=== PATIENT | female | born 1980 | race African-American/Black ===

== ENCOUNTER 2023-09-07 02:33 | Emergency (ER) | payer OTHER, SELFPAY ==
--- NOTE | ~2023-09-07 | XR_ITS ---
EXAMINATION: XR elbow RT min 3V DATE: 09/07/2023 02:53 INDICATION: Right elbow injury and pain. TECHNIQUE: 4 views of right elbow were obtained. COMPARISON: None. FINDINGS: Bone alignment is normal. No fracture. Joint spaces are normal. No elbow joint effusion. IMPRESSION: 1. No fracture. Reviewed, dictated and finalized at location A. CLOSURE SPECIALIST IMPRESSION: 1. No fracture.
--- NOTE | ~2023-09-07 | CT_ITS ---
EXAMINATION: CT elbow RT wo con DATE: 09/07/2023 03:30 INDICATION: Right elbow pain. TECHNIQUE: Computed tomography (CT) of the right elbow was performed without intravenous contrast. Au tomated exposure control and iterative reconstruction technique were employed. The dose-length produc t was 457.17 mGy-cm. COMPARISON: Right elbow radiographs 09/07/2023 FINDINGS: Bone alignment is normal. No fracture. There is mild elbow joint osteoarthritis characteriz ed by tiny osteophytes. No elbow joint effusion. IMPRESSION: 1. Mild elbow joint osteoarthritis. Reviewed, dictated and finalized at location A. DING MAINTENANCE REPAIRER
--- NOTE | ~2023-09-07 | XR_ITS ---
EXAMINATION: XR forearm RT 2V DATE: 09/07/2023 02:53 INDICATION: Right forearm injury and pain. TECHNIQUE: 2 views of right forearm were obtained. COMPARISON: None. FINDINGS: Bone alignment is normal. No fracture. Joint spaces are normal. No elbow joint effusion. IMPRESSION: 1. No fracture. Reviewed, dictated and finalized at location A. DROGENATION CONVERTER HELPER IMPRESSION: 1. No fracture.
[2023-09-07 02:49] VITALS: BP 173/92; PULSE 84; RESP 18; TEMP 37; O2SAT 100
--- NOTE | 2023-09-07 02:57 | ED.UPPEXIN ---
HPI - Extremity Injury (Upper) General Chief Complaint: Extremity Injury, Upper Stated Complaint: upper extremity Time Seen by Provider: 09/07/23 02:54 Source: patient Mode of arrival: ambulatory Limitations: no limitations History of Present Illness HPI narrative: Patient is a 43-year-old female with a right elbow pain after lifting up a window this evening. She heard a pop sound. complaint: injury to: right Onset (ago): minute(s) ( Prior to arrival) Other Extremity Injury: Right: elbow and forearm Other injuries: none Place: home Severity: mild Severity scale (1-10): 3 Relieving factors: immobilization Exacerbating factors: movement of extremity Context: direct blow ( lifting a window) Associated symptoms: denies other symptoms Related Data Home Medications Medication Instructions Recorded Confirmed cetirizine 10 mg tablet (Zyrtec) 10 mg PO DAILY 09/07/23 09/07/23 Allergies Allergy/AdvReac Type Severity Reaction Status Date / Time clindamycin Allergy Mild Rash Verified 09/07/23 02:44 Review of Systems Review of Systems: All systems reviewed & are unremarkable except as noted in HPI and below Constitutional: Constitutional: Reports no additional constitutional complaints Eyes: Eyes: Reports no additional eye complaints ENT: Reports system reviewed and no additional complaints, except as documented Cardiovascular: Cardiovascular: Reports no additional cardiovascular complaints Respiratory: Respiratory: Reports no additional respiratory complaints Gastrointestinal: Gastrointestinal: Reports no additional gastrointestinal complaints Genitourinary: Genitourinary: Reports no additional female genitourinary complaints Musculoskeletal: Musculoskeletal: Reports no additional musculoskeletal complaints Integumentary/Breasts: Skin/Breast: Reports system reviewed and no additional complaints, except as docu Neurologic: Reports system reviewed and no additional complaints, except as documented Psychiatric: Psychiatric: Reports no additional psychiatric complaints Endocrine: Endocrine: Reports no additional endocrine complaints Hematologic/Lymphatic: Hematologic/Lymphatic: Reports no additional hematologic/lymphatic complaints Allergic/Immunologic: Allergic/Immunologic: Reports no additional allergic/immunologic complaints Exam Const: General: healthy appearing Nutritional Appearance: well nourished Orientation/consciousness: patient oriented x3 HENMT: Head: normal to inspection Ears: external ears normal Face/Nose/Sinus: Normal external nose present Eyes: Conjunctivae: conjunctivae normal Pupils: Equal, round and reactive pupils present EOM: EOMs intact bilaterally Neck: Neck: normal visual inspection Chest: Chest palpation & inspection: normal inspection of the chest Resp: Effort & Inspection: normal respiratory effort and not labored Auscultation: clear to auscultation bilaterally and no crackles Cardio: Rate: regular rate Rhythm: regular rhythm Heart sounds: no murmurs GI: Inspection: non-distended GI Palp: Yes Soft to palpation and No Tenderness to palpation present (GI) Auscultation: normal bowel sounds Back/Spine/Pelvis: Back: no CVA tenderness Skin: General skin exam: normal color Rashes: no rashes Wounds: no wounds Neuro: General: patient oriented x3 Cranial nerves: Yes Nystagmus not present Speech: normal speech Extrem: General: normal to inspection Psych: Mental Status: mental status grossly normal Affect: normal affect Attitude: cooperative Course Vital Signs Vital signs: Vital Signs Temperature 37.0 C 09/07/23 02:49 Pulse Rate 84 09/07/23 02:49 Respiratory Rate 18 09/07/23 02:49 Blood Pressure 173/92 H 09/07/23 02:49 Pulse Oximetry 100 09/07/23 02:49 Oxygen Delivery Room Air 09/07/23 02:49 Temperature 37.0 C 09/07/23 02:49 Pulse Rate 84 09/07/23 02:49 Respiratory Rate 18 09/07/23 02:49 Blood Pressure 173/92 H 09/07
== END 2023-09-07 03:58 | disposition home or self-care (01) ==
PROVIDERS: Emergency Provider Emergency Medicine
DX: S53.401A Unspecified sprain of right elbow, initial encounter (principal); X50.9XXA Other and unspecified overexertion or strenuous movements or postures, initial encounter
CPT/HCPCS: 73080; 73090; 73200; 99284; A4565

== ENCOUNTER → 2023-09-20 08:23 | Outpatient (CLI) | payer OTHER, SELFPAY ==
--- NOTE | ~2023-09-20 | MR_ITS ---
MRI of the right elbow CLINICAL HISTORY: Pain TECHNIQUE: Proton-density and proton-density fat-sat imaging was performed in the axial, coronal, and sagittal planes. FINDINGS: Ulnar collateral ligament is intact. Lateral ulnar collateral ligament and the radial colla teral ligament are intact. Common flexor and common extensor tendon origins are unremarkable. Bone marrow signals are unremarkable. No osseous or articular abnormality of the elbow joint seen. No joint effusion. There is complete rupture of the distal biceps tendon from its radial insertion, with retraction of a t least 4.5 cm. There is soft tissue edema and fluid about the retracted tendon, which is wavy and hy perintense and morphology. Brachialis and triceps tendons are intact. Remaining musculature unremarka ble. IMPRESSION: Complete rupture of the distal biceps tendon with significant retraction, as detailed above. Reviewed, dictated and finalized at [facility]. HEATERMAN IMPRESSION: Complete rupture of the distal biceps tendon with significant retraction, as de tailed above.
== END ==
PROVIDERS: PCP Internal Medicine
DX: S46.211A Strain of muscle, fascia and tendon of other parts of biceps, right arm, initial encounter (principal); X58.XXXA Exposure to other specified factors, initial encounter
CPT/HCPCS: 73221

== ENCOUNTER 2024-10-13 08:23 | Outpatient (CLI) | payer OTHER, SELFPAY ==
--- NOTE | ~2024-10-13 | MR_ITS ---
EXAMINATION: MR lumbar spine wo con DATE: 10/13/2024 09:02 INDICATION: Lumbar disc herniation TECHNIQUE: Magnetic resonance imaging (MRI) of the lumbar spine was performed without intravenous con trast. Sequences included sagittal T2-weighted FSE, sagittal T2-weighted FS FSE, sagittal T1-weighted FSE, and axial T2-weighted FSE. COMPARISON: None FINDINGS: 1-2 mm retrolisthesis L3 on L4. Vertebral body heights are normal. Moderate disc height loss with ass ociated fibrovascular degenerative endplate changes at L5-S1. Marrow signal is otherwise unremarkable . Additional mild disc height loss at L3-L4. The conus medullaris terminates at T12-L1. There is norm al signal in the caudal spinal cord. Paravertebral soft tissues are unremarkable. The following disc levels are specifically discussed: T12-L1 through L2-L3: The disc does not extend beyond the endplate margin. There is mild bilateral fa cet joint osteoarthritis. There is no neural foraminal stenosis. There is no central canal L3-L4: Disc is mildly bulging. There is mild bilateral facet joint osteoarthritis. There is minimal b ilateral neural foraminal stenosis. There is minimal central canal stenosis. L4-L5: Disc is mildly bulging. There is mild left and severe right facet joint osteoarthritis. There is mild bilateral neural foraminal stenosis. There is normal central canal stenosis. L5-S1: Disc is bulging with reported annular fissure and left paracentral disc protrusion. There is m oderate bilateral facet joint osteoarthritis. There is mild right and mild to moderate left neural fo raminal stenosis. There is mild central canal stenosis as well as mild narrowing narrowing of the lef t lateral recess. IMPRESSION: 1. Moderate lumbosacral spondylosis and minimal to mild more cephalad lumbar spondylosis. Reviewed, dictated and finalized at location A. WORKER IMPRESSION: 1. Moderate lumbosacral spondylosis and minimal to mild more cephalad lumbar sp ondylosis.
== END 2024-10-13 08:24 | disposition home or self-care (01) ==
PROVIDERS: PCP Internal Medicine; Visit Provider Chiropractor
DX: M51.26 Other intervertebral disc displacement, lumbar region (principal); M47.897 Other spondylosis, lumbosacral region; M47.896 Other spondylosis, lumbar region
CPT/HCPCS: 72148

== ENCOUNTER 2024-12-29 17:52 | Emergency (ER) | payer OTHER, SELFPAY ==
--- OUTSIDE RECORDS SUMMARY | 2024-12-29 17:55 | XMS_ITS ---
Author Organization [facility] [place] ([address]) Address [address] [place] [address] Care Team Providers Care Film Sound Engineer Name Role Phone Alexys Scott MD Primary Care Provider UnavailFuad Mayen Unavailable [phone] ZZ-Migration, Provider Unavailable Unavailab le Allergies Allergen (clinical drug ingredient) Drug/Non Drug Allergy documented on EMR Reaction Allergy Type Onset Date Status clindamycin Clindamycin hives Drug Allergy Act sage REAS[facility] Encounter Medications Medication SIG (Take, Route, Frequency, Duration) Notes Start Date End Date Status NASAL WASHES N/A DIRECTED INTRANASALLY NEEDED for 30 *Please review for potential replacement for e-prescription and drug interaction check* Active OLOPATADINE NASAL 665 MCG/INH 2 SPRAY(S) INTRANASALLY 2 TIMES A DAY for 30 DAY(S) *Please review for potential replacement for e-prescription and drug interaction check* Active Fluticasone Propionate 50 MCG/ACT 2 spray(s) in each nostril BID for 30 day(s) Active Cetirizine HCl 10 MG 1 tab(s) orally BID for 30 days Active ZyrTEC Allergy 10 MG 1 tab(s) orally once a day Active Auvi-Q 0.3 MG/0.3ML as directed intramuscularly once for 30 days Active Flonase Allergy Relief 50 MCG/ACT 1 spray(s) in each nostril once a day for 30 day(s) Active Multivitamin - 1 tab(s) orally once a day for 30 day(s) Active VANICREAM MOISTURIZING CREAM N/A NECESSARY APPLY TO EXTERNAL SURFACES OFTEN NEEDED TO FACE, HANDS, FEET OR BODY FOR DAILY USE BY THE ENTIRE FAMILY for 30 DAY(S) *Please review for potential replacement for e-prescription and drug interaction check* Active Encounters Encounter Location Date Provider Diagnosis [facility] [address] [place] [address] 02/21/2024 Provider SUKUMAR-Migration Plan Of Treatment No Information Progress Notes * JPAlbertaericaDOB:1980 (44 yo F)Acc No.[id number]:02/21/2024 Patient: Tayler DREW Provider: Roger Pritchard :1980 A ge:43 Y S ex:Female Date:02/21/2024 Address:[address] [place], [place] [id number] Pcp:Alexys Scott MD Subjective: * Chief Complaints: * 1 . Multum To Medispan Conversion Encounter. * Medical History: * Medications: T aking Auvi-Q 0.3 MG/0.3ML Solution Auto-injector as directed intramuscularly once , Taking VANICREAM MOISTURIZING CREAM N/A MOISTURIZING CREAM NECESSARY APPLY TO EXTERNAL SURFACES OFTEN NEEDED TO FACE, HANDS, FEET OR BODY FOR DAILY USE BY THE ENTIRE FAMILY , Notes to Pharmacist: *Please review for potential replacement for e-prescription and drug interaction check*, Taking Multivitamin - Tablet 1 tab(s) orally once a day , Taking Flonase Allergy Relief 50 MCG/ACT Suspension 1 spray(s) in each nostril once a day , Taking ZyrTEC Allergy 10 MG Tablet 1 tab(s) orally once a day , Taking Cetirizine HCl 10 MG Tablet 1 tab(s) orally BID , Taking Fluticasone Propionate 50 MCG/ACT Suspension 2 spray(s) in each nostril BID , Taking OLOPATADINE NASAL 665 MCG/INH SPRAY 2 SPRAY(S) INTRANASALLY 2 TIMES A DAY , Notes to Pharmacist: *Please review for potential replacement for e-prescription and drug interaction check*, Taking NASAL WASHES N/A 1 QUART OF STERILIZED TAP WATER OR DISTILLED WATER, 1 TSP NACL, 1 PINCH OF BAKING SODA DIRECTED INTRANASALLY NEEDED , Notes to Pharmacist: *Please review for potential replacement for e-prescription and drug interaction check* * Allergies: C lindamycin: hives. Objective: * Vitals: Assessment: Plan: * Treatment: * Billing Information: * Visit Code: * Procedure Codes: * Electronic signature of Filomena PATINO-Migration on 12/29/2024 at 05:54 PM CDT Sign off status: Pending * Provider: Roger morin Migration Date: 0 02/21/2024 Generated for Mj arthur/Lyndon/Princeitting on: 0 12/29/2024 05:54 PM CDT
--- OUTSIDE RECORDS SUMMARY | 2024-12-29 17:55 | XMS_ITS | Encounter Summary ---
Author Organization [facility] Address [address] [place] [address] Care Team Providers Care Assistant Store Manager Trainee Name Role Phone Alexys Scott MD Primary Care Provider [phone] Encounter Details Date Type Department Care Team (Late st Contact Info) Description 08/19/2024 Telephone [facility] Care at [address] [address] Carrie Luciano MA Social History Tobacco Use Types Packs/Day Years Used Date Smoking Tobacco: Never Personal Safety Answer Date Recorded Getting School Help Needed Not on file 09/15 Comments Unknown Sex and Gender Information Value Date Recorded Sex Assigned at Not on file Legal Sex Female 9:32 PM PORTAL DEVELOPER Gender Identity Not on file Sexual Orientation Not on file documented as of this encounter Plan of Treatment Not on file documented as of this encounter Visit Diagnoses Not on filedocumented in this encounter Care Teams Assistant Store Manager Trainee Relationship Specialty Start Date End Date Alexys Scott MD [address] [place] [address] [address] [place] [address] PCP - General Internal Medicine 06/07/22 documented as of this encounter
--- OUTSIDE RECORDS SUMMARY | 2024-12-29 17:55 | XMS_ITS | Patient Health Record ---
Author Organization [facility] [place] ([address]) Address [address] [place] [address] Care Team Providers Care Bank Officer Name Role Phone Alexys Scott MD Primary Care Provider UnavailFuad Mayen Unavailable [phone] ZZ-Migration, Provider Unavailable Unavailab le Allergies Allergen (clinical drug ingredient) Drug/Non Drug Allergy documented on EMR Reaction Allergy Type Onset Date Status clindamycin Clindamycin hives Drug Allergy Act sage Reason For Referral No Information Medications Medication SIG (Take, Route, Frequency, Duration) Notes Start Date End Date Status Multivitamin - 1 tab(s) orally once a day for 30 day(s) Active VANICREAM MOISTURIZING CREAM N/A NECESSARY APPLY TO EXTERNAL SURFACES OFTEN NEEDED TO FACE, HANDS, FEET OR BODY FOR DAILY USE BY THE ENTIRE FAMILY for 30 DAY(S) *Please review for potential replacement for e-prescription and drug interaction check* Active Auvi-Q 0.3 MG/0.3ML as directed intramuscularly once for 30 days Active AUVI -Q 0.3 mg as directed intramuscularly once for 30 days Active MULTIVITAMIN Multiple Vitamins 1 tab(s) orally once a day for 30 day(s) Active NASAL WASHES N/A DIRECTED INTRANASALLY NEEDED for [...] 1 tab(s) orally once a day Active Flonase Allergy Relief 50 MCG/ACT 1 spray(s) in each nostril once a day for 30 day(s) Active FLONASE 50 mcg/inh 1 spray(s) in each nostril once a day for 30 day(s) Active ZYRTEC 10 mg 1 tab(s) orally once a day Active CETIRIZINE 10 mg 1 tab(s) orally BID for 30 days Active FLUTICASONE NASAL 50 mcg/inh 2 spray(s) in each nostril BID for 30 day(s) Active Social History Tobacco Use: Social History Observation Description Date Details (start date - stop date) Never Smoker NA - NA Smoking Smart Form: Question Answer Notes Are you a: never smoker Problems Problem Type SNOMED Code ICD Code Onset Dates Problem Status W/U Status Risk Notes Problem Chronic allergic conjunctivitis (49788448) Other chronic allergic conjunctivitis (H10.45) Active confirmed Problem Allergic rhinitis caused by pollen (disorder) (40855140) Allergic rhinitis due to pollen (J30.1) Active confirmed Problem Allergic rhinitis (06222921) Other allergic rhinitis (J30.89) Active confirmed Problem Allergic rhinitis caused by animal hair and dander (573711464495559) Allergic rhinitis due to animal (cat) (dog) hair and dander (J30.81) Active confirmed Problem Eruption of skin (452685661) Rash and other nonspecific skin eruption (R21) Active confirmed Problem Idiopathic urticaria (04283074) Idiopathic urticaria (L50.1) Active confirmed Problem Elevated blood pressure reading without diagnosis of hypertension (116529519) Elevated blood-pressure reading, without diagnosis of hypertension (R03.0) Active confirmed Problem Ingestion dermatitis caused by food (084975628) Dermatitis due to ingested food (L27.2) Active confirmed Problem Swelling of head (226739554) Localized swelling, mass and lump, head (R22.0) Active confirmed Problem Allergy status t o other antibiotic agents (Z88.1) Active confirmed Encounters En[facility] Date [facility] [place] [address] [facility] Provider ZZ-Migration Plan Of Treatment Pending Test Test Name Order Date SCALLOP (F338) IGE 12/27/2021 CRAB (F23) IGE 12/27/2021 SHRIMP (F24) IGE 12/27/2021 LOBSTER (F80) IGE 12/27/2021 LOBSTER (F80) IGE 05/29/2022 IMMUNOGLOBULIN E 05/29/2022 IMMUNOGLOBULIN E 12/27/2021 CLAM (F207) IGE 12/27/2021 OYSTER (F290) IGE 12/27/2021 BRAZIL NUT (F18) IGE W/REFL COMPONENT Insurance Providers Payer Name Payer Address Payer Phone Subscriber Number Group Number Insured Name Patient Relationship to Insured Coverage Start Date Coverage End Date [facility] [address] [address] [place] [address] [phone] [id number] Tayler Linares Self - patient is the insured Medical (General) History Medical History History ICD Code Dermatitis, unspecified L30.9 Allergic rhinitis due to pollen J30.1 Allergic rhinitis due to animal (cat) (d og) hair and dander J30.81 Other allergic rhinitis J30.89 Other chronic allergic conjunctivitis H1 0.45 Idiopathic urticaria L50.1 Dermatitis due to ingested food L27.2 Localized swelling, mass and lump, head R22.0 Rash and other nonspecific skin eruption R21 Allergy status to other antibiotic agent s Z88.1 Elevated blood-pressure reading, without diagnosis of hypertension R03.0 Surgical History Surgery Date(Month/Year)
--- OUTSIDE RECORDS SUMMARY | 2024-12-29 17:55 | XMS_ITS | Clinical Summary ---
Author Organization [facility] Address [address] [place] [address] Care Team Providers Care Slabber Light Name Role Phone Alexys Scott MD Primary Care Provider Allergies Active Allergy Reactions Criticality Noted Date Comments Cephalexin Unknown 06/26/2022 Clindamycin Hives,Swelling Medium 01/12/2015 Swelling Latex Rash Medium 01/12/2015 Rash Lidocaine Dizziness Low 01/12/2015 Dizziness/Light Headed Mold Other (See comments) Low 01/12/2015 Hives Penicillins Other (See comments),Swelling Medium 01/12/2015 Swelling Pseudoephedrine Shortness of breath High 01/12/2015 Breathing Difficulty Shellfish Containing Products Shrimp Swelling Medium 01/12/2015 Swelling Sulfa (Sulfonamide Antibiotics) Unknown Medications cetirizine (ZyrTEC) 10 mg tablet Take 1 tablet (10 mg total) by mouth daily Active EPINEPHrine 0.3 mg/0.3 mL auto-injection syringe Auvi-Q 0.3 mg/0.3 mL injection, auto-injector USE DIRECTED INTRAMUSCULARLY Active fluticasone propionate (FLONASE) 50 mcg/actuation nasal spray 06/21/20 22 Active olopatadine 0.6 % spray,non-aero maren olopatadine 0.6 % nasal spray Active terconazole (TERAZOL 3) 0.8 % vaginal cream 06/06/20 22 Active testosterone micronized, bulk, 100 % powder 0 04/30/20 22 Active triamcinolone (KENALOG) 0.1 % ointment APPLY TO AFFECTED AREA OF TRUNK AND EXTREMITIES TWICE DAILY NEEDED. AVOID FACE AND ARMPITS 04/18/20 22 Active fluconazole (DIFLUCAN) 100 mg tablet 07/17/20 23 Active hydrocortisone (ANUSOL-HC) 2.5 % rectal cream APPLY SPARINGLY TO AFFECTED AREA 2 TO 4 TIMES A DAY 08/27/20 23 Active omadacycline (Nuzyra) 150 mg tablet Take 2 tablets every day by oral route. Active propranoloL (INDERAL) 20 mg tablet Take 1 tablet (20 mg total) by mouth every 8 (eight) hours 08/14/20 22 Active traMADoL (ULTRAM) 50 mg tablet 1 TAB TAKEN (TOGETHER W/ 1 TAB OF TYLENOL 650 MG) ONCE, UP TO TWICE A DAY NEEDED Active Active Problems Problem Noted Date Diagnosed Date Rupture of right distal biceps tendon 10/06/2023 Biceps rupture, distal, right, initial encounter 09/24/2023 Acute urinary tract infection 11/12/2022 Anxiety 10/10/2022 Acute blepharitis 09/22/2022 Chalazion of left upper eyelid 06/26/2022 Assessment & Plan (06/26/2022 12:34 PM CDT): Educated and reassured patient of findings From history previous hordeolum as well, treated by outside provider with Augmentin Much improved form 2-3 weeks ago per patient Refer to oculo-plastics for I/C eval Glaucoma suspect, bilateral 06/26/2022 Assessment & Plan (06/26/2022 12:35 PM CDT): Normal tensive, symmetrical IOP, 18 OU Large ONH OU, with slightly asymmetrical CDR OS > OD Healthy NRR 360 OU, no hemes / notches OU OCT today WNL OU Likely represents physiologic cupping RTC 1 year with 24-2, PRN with vision changes COVID-19 10/12/2020 Dry skin 06/01/2018 Sneezing 06/01/2018 Eczema 06/01/2018 Dry eyes 06/01/2018 Precordial pain 01/20/2018 Hay fever 08/05/2016 Hypertrophy of nasal turbinates 08/05/2016 Atypical facial pain 08/05/2016 Cephalalgia 08/05/2016 Epiphora 08/05/2016 Family History Medical History Relation Name Comments Arthritis Other Gout Other Osteoporosis Other Relation Name Status Comments Other Social History Tobacco Use Types Packs/Day Years Used Date Smoking Tobacco: Never Personal Safety Answer Date Recorded Getting School Help Needed Not on file 09/15 Comments Unknown Sex and Gender Information Value Date Recorded Sex Assigned at Not on file Legal Sex Female 9:32 PM CHAIRMAN & CO FOUNDER Gender Identity Not on file Sexual Orientation Not on file Obstetrics History Last Filed Vital Signs Vital Sign Reading Time Taken Comments Blood Pressure 163/97 09/24/2023 11:44 AM CHAIRMAN & CO FOUNDER Pulse 79 09/24/2023 11:44 AM CHAIRMAN & CO FOUNDER Temperature 37.1 C (98.7 F) 01/12/2015 9:28 AM CDT Respiratory Rate - - Oxygen Saturation 100% 01/12/2015 9:28 AM CDT Inhaled Oxygen Concentration - - Weight 72.1 kg (159 lb) 09/24/2023 11:44 AM CHAIRMAN & CO FOUNDER Height 162.6 cm (5' 4 ) 09/24/2023 11:44 AM CHAIRMAN & CO FOUNDER Body Mass Index 27.29 09/24/2023 11:44 AM CHAIRMAN & CO FOUNDER Plan of Treatment Health Maintenance Due Date Last Done Comments Cervical Cancer Screening 1978 Colon Cancer Screening-Colonoscopy 1978 Depression Screening 1978 Hepatitis C Screening 1978 DTaP/Tdap/Td Vaccine (1 - Tdap) 1989 Hepatitis B Screening 1996 Regular Well Visit/Exam 18-64 1996 Covid-19 Vaccine (2 - season) 2024 11/18/2021 Influenza Vaccine (#1) 2024 Breast Cancer Screening-Mammogram 01/25/2025 01/26/2024, 01/26/2024, 10/28/2022, Additional history exists HPV Vaccines Aged Out No longer eligi ble based on patient's age to complete this topic Pneumococcal vaccine <65 Aged Out No longer eligible based on patient's age to complete this topic Insurance [employer] [place] [id number] Care Teams Slabber Light Relationship Specialty Start Date End Date Alexys Scott MD [facility] [address] [place] [address] PCP - General Internal Medicine 06/07/22
--- OUTSIDE RECORDS SUMMARY | 2024-12-29 17:55 | XMS_ITS | Clinical Summary ---
Author Organization [email or web address] Address [address] [place] [address] Care Team Providers Care Industrial Eng Name Role Phone Alexys Scott MD Primary Care Provider [phone] Source Comments [email or web address],non-owned Affiliates and Associated Physician Practices is amultiple site organization consisting of ambulatory clinics and hospital sitesin [place], [place], [place] and [place]. This disclosure is being madepursuant to the Care Everywhere program and may not contain all information available regarding this patient. Last updated 18.[email or web address] Allergies Active Allergy Reactions Criticality Noted Date Comments Shellfish-Derived Products Unknown Sulfa Drugs Unknown Medications * Be aware that medications may not be up to date on this document. Alwaysverify current medications with the patient. fluticasone propionate (FLONASE) 50 MCG/ACT nasal spray [place] 2 sprays into each nostril once daily 1 11/06/2017 Active cetirizine (ZYRTEC ALLERGY) 10 MG tablet Take 10 mg by mouth once daily Active Active Problems Problem Noted Date Diagnosed Date Precordial pain 01/20/2018 Family History Medical History Relation Name Comments CAD (Coronary Artery Disease) Maternal Grandmother Diabetes - Type 2 Mother Hypertension Mother Relation Name Status Comments Father Alive Maternal Grandfather Maternal Grandmother Alive Mother Alive Paternal Grandfather Paternal Grandmother Sister 1 Alive Sister 2 Alive Social History Tobacco Use Types Packs/Day Years Used Date Smoking Tobacco: Never Alcohol Use Standard Drinks/Week Comments No 0 (1 standard drink = 0.6 oz pur e alcohol) Comments Unknown Sex and Gender Information Value Date Recorded Sex Assigned at Not on file Legal Sex Female 8:47 AM CDT Gender Identity Not on file Sexual Orientation Not on file Last Filed Vital Signs Vital Sign Reading Time Taken Comments Blood Pressure 118/84 01/20/2018 2:53 PM CDT Pulse 107 01/20/2018 2:53 PM CDT Temperature - - Respiratory Rate - - Oxygen Saturation 95% 01/20/2018 2:53 PM CDT Inhaled Oxygen Concentration - - Weight 65.8 kg (145 lb) 01/20/2018 2:53 PM CDT Height 167.6 cm (5' 6 ) 01/20/2018 2:53 PM CDT Body Mass Index 23.4 01/20/2018 2:53 PM CDT Plan of Treatment Health Maintenance Due Date Last Done Comments COLOGUARD (AGES 45-75) - COL ON CA SCREENING 1978 COLON MONITORING 1978 COLONOSCOPY - COLON CA SCREENING 1978 CT COLONOGRAPHY - COLON CA SCREENING 1978 Colorectal Cancer Screening 1978 FIT - COLON CA SCREENING 1978 FLEX SIG - COLON CA SCREENING 1978 LIPID TESTING 1978 MAMMOGRAM 1978 HIV SCREENING 1993 HEPATITIS C SCREENING 08/09/1996 DTAP/TDAP/TD VACCINES (1 - Tdap) 1997 HEPATITIS B VACCINE (1 of 3 - 19+ 3-dose series) 1997 COVID-19 VACCINE (1 - 2023-2 5 season) 2024 DEPRESSION SCREENING 09/08/2024 INFLUENZA VACCINE (Season Ended) 2025 ZOSTER VACCINE (1 of 2) 2028 HIB VACCINE Aged Out No longer eligi ble based on patient's age to complete this topic HPV VACCINE Aged Out No longer eligi ble based on patient's age to complete this topic MENINGOCOCCAL (Group B) VACC INE SHARED DECISION-MAKING Aged Out No longer eligibl e based on patient's age to complete this topic MENINGOCOCCAL GROUPS A/C/Y/W VACCINE Aged Out No longer eligible b ased on patient's age to complete this topic PNEUMOCOCCAL VACCINE Aged Out No long er eligible based on patient's age to complete this topic Insurance CLAUDIAEM Care Teams Industrial Eng Relationship Specialty Start Date End Date Alexys Scott MD [address] [place] [address] [address] [place] [address] PCP - General 09/16/18
--- OUTSIDE RECORDS SUMMARY | 2024-12-29 17:55 | XMS_ITS | Encounter Summary ---
Author Organization [facility] Address [address] [place] [address] Care Team Providers Care Molding Supervisor Name Role Phone Alexys Scott MD Primary Care Provider [phone] Reason for Visit * Auth/Cert (Routine) Specialty Diagnoses / Procedures Referred By Contac t Referred To Contact Diagnoses Rupture of right distal biceps tendon, subsequent encounter Rupture of right distal biceps tendon, subsequent encounter [S46.211D] Procedures IA RINSJ RPTD BICEPS/TRICEPS TDN DSTL W/WO TDN GRF REPAIR - DISTAL BICEPS-open Referral ID Status Reason Start Date Expiration Date Visits Re quested Visits Authorized [id number] 1 1 Encounter Details Date Type Department Care Team (Late st Contact Info) Description 10/10/2023 Hospital Encounter [facility] Surgery at [facility] [address] [place] [address] Barron Hollingsworth MD [address] [place] [address] Social History Tobacco Use Types Packs/Day Years Used Date Smoking Tobacco: Never Personal Safety Answer Date Recorded Getting School Help Needed Not on file 09/15 Comments Unknown Sex and Gender Information Value Date Recorded Sex Assigned at Not on file 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
--- OUTSIDE RECORDS SUMMARY | 2024-12-29 17:55 | XMS_ITS | Data Portability ---
Author Organization [facility], [employer] Address [address] [place] [address] Care Team Providers Care Soft Top Installer Name Role Phone IRENA VASQUEZ Inspector Multifocal Lens [phone] Assessment Encounter Date Assessment Date Assessment LastModified by Organization Details LastModified Time 12/23/2023 12/23/2023 Recommends healthy nutrition, including a diet rich in fruits and vegetables, minimizing simple carbohydrates, salt, and saturated fats. Encouraged regular cardiovascular exercise such as walking at least 30 minutes daily, 5 times per week. Emphasized preventive health measures and educated pt on fall prevention and community-based lifestyle interventions to help reduce health risks and promote healthy living. Not available 12/23/2023 10:20:37 Plan of Treatment Reminders Order Date Submit Date Provider Last Modified By Organization Details Last Modified Time Details Appointments None recorded. Lab microalbumi n/creatinin e, mass ratio, urine 2023 024 J[employer]ier [facility], [address], [place], [address], 4 10:28:45 HIV 1 + 2, meaningful use set 2023 024 CORNELBeijing Yiyang [employer] [facility], [address], [place], [address], 4 10:21:26 lipid panel, serum 2023 024 [facility], [address], [place], [address], 4 08:45:37 CBC w/ auto diff 2023 024 [employer] [facility], [address], [place], [address], 4 08:45:37 CMP, serum or plasma 2023 024 [employer] [facility], [address], [place], [address], 4 08:45:37 vitamin D, 25-hydroxy, total, serum 2023 024 [employer]Displ[employer] [facility], [address], [place], [address], 4 08:20:18 vitamin C, serum 2023 024 [employer] Nikolay [facility], [address], [place], [address], 4 10:28:45 noninvasive colorectal cancer DNA + occult blood screening, QL, stool 2023 024 [facility] (Cologuard Orders Only), [address], [address], [place], [address], 5 12:09:37 Referral gynecologis t referral 2023 024 [email or web address] 6 [facility], [address] [place], [address], 4 09:05:42 physical therapist referral 2023 024 radha [facility], [address], [place], [address], 5 08:19:21 gynecologis t referral 2022 023 [place], [address] [facility] [address], [place], [address], 3 05:34:13 Procedures None recorded. Surgeries None recorded. Imaging MAMMO, screening, digital, bilateral [address] Scheduling, [address] [facility], [place], [address], 4 19:11:29 Medication Orders propranolol 20 mg tablet 2023 024 [facility], [address], [place], [address], 4 10:20:39 amoxicillin 875 mg-potassiu m clavulanate 125 mg tablet 2023 024 [facility], [address], [place], [address], 4 10:20:39 fluconazole 150 mg tablet 2023 024 [facility], [address], [place], [address], 4 10:20:41 Miralax 17 gram oral powder packet 2023 024 [facility], [address], [place], [address], 4 20:27:51 Diflucan 150 mg tablet 2023 024 [facility], [address], [place], [address], 4 20:27:50 tramadol 50 mg tablet [address]/Pharmacy #2713, [address], [place], [address], 4 09:51:25 Nuzyra 150 mg tablet 2022 023 [address] [facility], [address], [place], [address], 4 09:51:13 Diflucan 100 mg tablet 2022 023 [address] [facility] [address], [address], [place], [address], 4 09:50:38 Diflucan 150 mg tablet 2022 023 [address] [facility], [address], [place], [address], 3 08:39:21 terconazole 0.8 % vaginal cream 2022 023 [facility], [address], [place], [address], 3 21:39:30 Patient TargetsNo targets recorded. Patient Instructions Encounter Date Encounter Id Patient Instructions Last Modified By Organization Details Last Modified Time 12/23/2023 [id number] advised to lose weight Not available 12/23/2023 10:20:33 Discussed and explained advance directives such as standard forms to the {{patient caregiv er patient and caregiver}}. Face to face discussion lasted for a duration of ___ minutes. Not available 12/23/2023 09:49:22 Reason for Referral Pattern Hand Referral for [place] [facility] [place] vaginalis Referring Physician: Freddy Gresham, Internal Medicine, Encounter Date: 04/25/2023 Physical Therapist Referral for Pain in right arm Referring Physician: Lydia Holder, Internal Medicine, Encounter Date: 09/10/2023 Pattern Hand Referral for Gy necologic examination Referring Physician: Lydia Holder, Internal Medicine, Encounter Date: 12/23/2023 Results Created Date Observation Date Name Description Value Unit Range Abnormal Flag Note LastModifiedBy Organization Detail LastModifiedTime 10/28/19 23 MAMMO , naina turk, tomos ynthe sis, bilat eral [facility] [address] [facility] [place] [place] [address] Orderi ng Provid er: LYDIA HOLDER This is a summar y report . The comple te report is availa ble in the patien t's medica l record . If you cannot access the medica l record , please contac t the sendin g organi zayessy for a detail ed fax or copy. IMAGIN G STUDIE S: MG SCREEN ING W MENDOZA TEGAN DIGI DATE: 023 2:23 PM HISTOR Y: Encoun ter for screen ing mammog latosha for malign ant neopla sm of breast 42-yea r-old female for screen ing study. No report ed family histor y of breast cancer . COMPAR BHARAT: Screen ing mammog latosha 2020, 2019, and 019. TECHNI QUE: Bilate ral digita l screen ing mammog latosha with CAD. Standa rd CC and MLO views. 2-D imagin g and 3-D tomogr aphy. DISCUS ADRIANA: Hetero geneou sly dense fibrog landul ar tissue which limits mammog raphic evalua tion. No mammog raphic ally suspic ious mass, microc alcifi cation , or marc ectura l distor tion. IMPRES ADRIANA: 1. No mammog raphic eviden ce of malign dell. Recomm end annual mammog latosha. 2. BI-RAD S Catego ry 2: Benign . 3. TISSUE TYPE: Catego ry C: The breast s are hetero geneou sly dense, which may obscur e small masses . A) A negati ve report should not delay a biopsy if a domina nt or clinic ally suspic ious mass is presen t. B) Adenos is and dense breast s may obscur e an underl alecia neopla sm. C) Study interp reted with comput er aided detect ion. Ordere d By: LYDIA HOLDER Electr onical ly Signed By: Daja Rg on 023 5:13 PM Interp reted By: Daja Rg , 023 5:07 PM screen ing [facility] [address], [place], [address], 10/29/2022 14:04:26 09/22/19 24 09/20/2023 MRI, elbow , w/ contr ast No observ ation record ed. [address] [facility] [address], [place], [address], 10/15/2023 20:31:09 01/26/20 24 MAMMO , scree burke, tomos ynthe sis, bilat eral [facility] [address] [facility] [place] [address] Orderi ng Provid er: LYDIA HOLDER This is a summar y report . The comple te report is availa ble in the patien t's medica l record . If you cannot access the medica l record , please contac t the matthias escudero for a detail ed fax or copy. Examin ation: Screen ing bilate ral mammog latosha Exam Date: 024 3:28 PM Access ion: [id number] Clinic al histor y: Routin e screen ing. Compar bharat: 2022, 2020 Techni que: Digita l screen ing mammog villa of both breast s was perfor med. Breast tomosy nthesi s acquis itions were obtain ed and review ed. This study was read with the assist ance of a Gogoyoko er-aid ed detect ion system . Tissue densit y: There are scatte red areas of fibrog landul ar densit y. Findin gs: No suspic ious masses , malign ant appear ing calcif icatio ns, skin thicke burke or other abnorm alitie s are presen t. No signif icant change from the prior exam. IMPRES ADRIANA: No suspic ious mammog raphic findin gs. Recomm endati on: 1. Routin e Screen ing, Bilate ral Assess ment: ACR BI-RAD S 1 - NEGATI VE Ordere d By: LYDIA HOLDER Electr onical ly Signed By: William Schreiber MD on 5:51 PM Interp reted By: William Schreiber MD, 5:46 PM [facility] [address] [facility], [place], [address], 01/26/2024 19:11:56 10/13/19 25 10/13/2024 MRI, lumba r spine , w/ contr ast No observ ation record ed. [email or web address] [facility] [address] [facility] [facility] [address], [place], [address], 10/14/2024 11:13:04 Result Notes None recorded. Problems Name Problem SNOMED Code Status Onset Date Resolution Date Notes Provider Name and Address Organization Details Recorded Time Headache 58990280 Completed 201706/01/2018 Lydia Holder MD [address] [facility] [address], [place], [address] , [facility] 3 16:16:12 Eczema 37099359 Completed 201706/01/2018 Adrianne mitchell [facility] 8 14:52:51 Dry skin 36676908 Completed 201706/01/2018 Adrianne mitchell [facility] 8 14:52:44 Dry eyes 460548289 Completed 201706/01/2018 Adrianne mitchell [place] [facility] 8 14:52:41 Sneezing 34326635 Completed 201706/01/2018 Adrianne mitchell [place] [facility] 8 14:52:37 COVID-19 888863533 Active 2020 Not Available [facility] 3 01:32:08 Acute blephariti s 11933673 Active 2022 Not Available [facility] 3 01:32:08 Anxiety 89126468 Active 2022 Lydia Holder MD [address], [place], [address] , [facility] 3 16:14:30 Headache 25746263 Active 2022 Lydia Holder MD [address], [place], [address] , [facility] 3 16:16:11 Acute urinary tract infection 493849041 Active 2022 Lydia Holder MD [address], [place], [address] , [facility] 3 08:07:46 Problem Notes None recorded. Procedures Surgical History Date Name Laterality Status Provider Name and Address Organization Details Recorded Time 3 Date of Last Mammogram completed [facility] 06/22/2024 10:35:32 3 Date of Last Pap Smear completed [facility] 09/30/2022 09:04:25 Imaging Results Imaging Date Name Status LastModified by Organiz ation Details LastModified Time 10/28/2022 MAMMO, screening, tomosynthesis, bilateral completed [address], [address], 10/29/2022 14:04:26 09/20/2023 MRI, elbow, w/ contrast completed [address] [facility] [address], [place], [address], 10/15/2023 20:31:09 01/26/2024 MAMMO, screening, tomosynthesis, bilateral completed [address], [address], 01/26/2024 19:11:56 10/13/2024 MRI, lumbar spine, w/ contrast completed [facility] [address] [facility] [address], [place], [address], 10/14/2024 11:13:04 Procedure Notes None recorded. Medical Equipment None Reported. Allergies Allergen ID Allergen Name Allergen Category Reaction Reaction Severity Criticality Documentation Date Start Date Code Code System Note Provider Name and Address Organization Details Recorded Time 7439 clindamyc in Not available hives Not available Not available 06/01/2018 2582 RxNorm Not Available Not Available Not Available 7669 cephalexi n medicatio n Not available Not available Not available 09/07/2018 2231 RxNorm Hives Not Available Not Available Not Available 9291 Augmentin medicatio n other mild Not available 06/12/20202019 80986 2 RxNorm yeast infec tion Not Available Not Available Not Available Medications Name Sig Start Date Stop Date Status Note LastModified by Organization Details LastModified Time Miralax 17 gram oral powder packet Take 1 packet every day by oral route. 2023 active Not Available Not Available Not Avai lable fluconazole 100 mg tablet Take 1 tablet every day by oral route. 12/22 completed Not Available Not Available Not Available prednisone 10 mg tablet TAKE 2 TABLETS BY MOUTH DAILY 07/17 completed Not Available Not Available Not Available fluconazole 150 mg tablet TAKE 1 TABLET BY MOUTH EVERY OTHER DAY active Not Available Not Available No t Available metronidazo le 0.75 % (37.5 mg/5 gram) vaginal gel INSERT 1 APPLICATO R VAGINALLY AT BEDTIME FOR 5 NIGHTS 07/18 completed Not Available Not Available Not Available propranolol ER 60 mg capsule,24 hr,extended release 08/06 completed Not Available Not Available Not Available terconazole 0.8 % vaginal cream PLEASE SEE ATTACHED FOR DETAILED DIRECTION S active Not Available Not Available No t Available tramadol 50 mg tablet 1 TAB TAKEN (TOGETHER W/ 1 TAB OF TYLENOL 650 MG) ONCE, UP TO TWICE A DAY NEEDED 12/22 completed Not Available Not Available Not Available meloxicam 7.5 mg tablet 06/01 completed Not Available Not Available Not Available hydrocortis one 2.5 % topical cream with perineal applicator APPLY SPARINGLY TO AFFECTED AREA 2 TO 4 TIMES A DAY active Not Available Not Available No t Available nitrofurant oin macrocrysta l 100 mg capsule TAKE 1 CAPSULE BY MOUTH EVERY 12 HOURS FOR 4 DAYS. 05/02 completed Not Available Not Available Not Available triamcinolo ne acetonide 0.1 % topical ointment APPLY TO AFFECTED AREA OF TRUNK AND EXTREMITI ES TWICE DAILY NEEDED. AVOID FACE AND ARMPITS 12/22 completed Not Available Not Available Not Available lisinopril 10 mg tablet active Not Available Not Available Not Available sertraline 25 mg tablet Take 1 tablet every day by oral route. 07/17 completed Not Available Not Available Not Available methylpredn isolone 4 mg tablets in a dose pack 08/05 completed Not Available Not Available Not Available propranolol 20 mg tablet Take 1 tablet every 8 hours by oral route. active Not Available Not Available No t Available hydrocortis one 2.5 % topical ointment 06/01 completed Not Available Not Available Not Available fluticasone propionate 50 mcg/actuati on nasal spray,suspe nsion INSTILL 2 SPRAYS EVERY DAY DIRECTED. INTO NOSTRIL(S ) 2023 active Not Available Not Available Not Avai lable amoxicillin 875 mg-potassiu m clavulanate 125 mg tablet TAKE 1 TABLET BY MOUTH EVERY 12 HOURS active Not Available Not Available No t Available oxycodone 5 mg tablet TAKE 1 TO 2 TABLETS BY MOUTH EVERY 4 HOURS NEEDED FOR PAIN MAX 6 TABS/DAY 12/22 completed Not Available Not Available Not Available fluocinolon e 0.01 % scalp oil and shower cap APPLY 3 ROWS TOPICALLY TO SCALP TWICE DAILY RUB IN, DO NOT WASH OFF. 07/18 completed Not Available Not Available Not Available Zyrtec 08/05 completed Not Available Not Available Not Available Mucinex 1,200 mg tablet, extended release Take 1 tablet every 12 hours by oral route. 08/05 completed Not Available Not Available Not Available olopatadine 0.6 % nasal spray PLACE 2 SPRAYS INTO EACH NOSTRIL TWICE A DAY 07/17 completed Not Available Not Available Not Available Auvi-Q 0.3 mg/0.3 mL injection, auto-inject or USE DIRECTED INTRAMUSC ULARLY active Not Available Not Available No t Available Solosec [address] granules in packet MIX INTO YOGURT 08/05 completed Not Available Not Available Not Available Nuzyra 150 mg tablet Take 2 tablets every day by oral route. 12/22 completed Not Available Not Available Not Available ID NOW COVID-19 Test Kit TEST DIRECTED TODAY 07/17 completed Not Available Not Available Not Available Vitals Date Recorded Body height Provider Name an d Address Organization Details Last Updated DateTime 04/25/2023 167.64 cm Josey Sterling [facility] 04/25/2023 11:59:48 Date Recorded Heart rate Systolic blood pressure Diastolic blood pressure Systolic blood pressure Diastolic blood pressure Provider Name and Address Organization Details Last Updated DateTime 06/24/2023 99 /min 142 mm[Hg] 84 mm[Hg] 143 mm[Hg] 86 mm[Hg] Jamila Amezcua [facility] 3 17:21:15 Date Recorded Body height Heart rate Respiratory rate Body temperature Body mass index (BMI) Body weight Systolic blood pressure Diastolic blood pressure Systolic blood pressure Diastolic blood pressure Provider Name and Address Organization Details Last Updated DateTime 4 167.64 cm 86 /min 16 /min 98.2 [degF] 26 kg/m2 51764.3 7 g 152 mm[Hg] 86 mm[Hg] 148 mm[Hg] 86 mm[Hg] Jamila Amezcua [facility] 4 10:14:40 Date Recorded Body height Heart rate Systolic blood pressure Diastolic blood pressure Provider Name and Address Organization Details Last Updated DateTime 10/15/2023 167.64 cm 78 /min 150 mm[Hg] 100 mm[Hg] Lydia Holder MD [address], [place], [address] , [facility] 10/15/2023 20:19:43 Date Recorded Body height Heart rate Respiratory rate Body temperature Body mass index (BMI) Body weight Systolic blood pressure Diastolic blood pressure Provider Name and Address Organization Details Last Updated DateTime 4 167.64 cm 90 /min 16 /min 97.3 [degF] 26.1 kg/m2 91951.9 6 g 138 mm[Hg] 84 mm[Hg] Keira Ramirez [facility] 4 09:33:03 Date Recorded Body height Heart rate Respiratory rate Body temperature Body mass index (BMI) Body weight Provider Name and Address Organization Details Last Updated DateTime 167.64 cm 90 /min 16 /min 94.5 [degF] 31.3 kg/m2 37479.9 2 g Keira Ramirez [facility] 10:35:02 Date Recorded Systolic blood pressure Diastolic blood pressure Provider Name and Address Organization Details Last Updated DateTime 06/22/2024 123 mm[Hg] 79 mm[Hg] Lydia Holder MD [address], [place], [address], [facility] 06/22/2024 11:01:54 Social History Question Answer Notes LastModified by Organizat ion Details LastModified Time Tobacco Smoking Status Never Smoker Adrianne mitchell, [facility] 06/01/2018 14:45:28 Do You Have An Advance Directive? No Information not available 06/01/2018 What Is Your Level Of Alcohol Consumption? Occasional Information not available 09/30/2022 What Is Your Level Of Caffeine Consumption? None Information not available 07/18/2021 How Much Tobacco Do You Chew? None Information not available 06/01/2018 What Is Your Code Status? Full Code Information not available 06/01/2018 Are You Currently Employed? Yes Information not available 06/01/2018 What Type Of Diet Are You Following? REGULAR Information not available 06/01/2018 Which Illicit Or Recreational Drugs Have You Used? None Information not available 06/01/2018 Do You Or Have You Ever Used E-cigarettes Or Vape? 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 06/22/2024 Information not available 06/22/2024 Do You Or Have You Ever Used Smokeless Tobacco? Never Used Smokeless Tobacco Information not available 07/07/2020 How Much Tobacco Do You Smoke? No Information not available 06/01/2018 Do You Use Any Illicit Or Recreational Drugs? No Information not available 07/18/2021 How Many Years Have You Smoked Tobacco? 0 Information not available 06/01/2018 Sex: Unknown Functional Status Question Answer Note LastModified by Organizat ion Details LastModified Time What is your exercise level? Moderate Yoga & wt lifting Information not available 06/01/2018 Mental Status None recorded. Family History Relationship Description Onset Age of this Age Resolved Age Notes LastModified by Organization Details LastModified Time Mother Diabetes mellitus [email or web address] Not available 05/10 14:43:31 Mother History of hypertension [email or web address] Not available 0 06/01/2018 14:43:53 Mother Chronic kidney disease stage 3 Not available 2017 15:24:43 Maternal Grandmother Rhythm from artificial pacing -- pacema ker implan t around 72 y/o Not available 06/01/2018 15:25:56 Maternal Grandfather Malignant tumor of lung (heavy smoker , 2ppd) -- dx'd in his 30s & in his 40s Not available 06/01/2018 15:27:15 Maternal Aunt Leukemia 42 48 -- dx'd in her 42 y/o Not available 06/01/2018 15:27:45 Maternal Aunt Malignant tumor of ovary -- dx'd in her early 40s Not available 06/01/2018 15:30:58 Medical History Condition Response Coronary Artery Disease N Other N Gout N Blood Diseases N Kidney Stones N Hyperthyroidism N Blood Transfusion N Breast Cancer N Lung Disease N Hypothyroidism N Depression N COPD N Defects or Inherited Disease N Developmental or Behavioral Disorders N Breast Problem N Difficulty Swallowing N Anesthesia Complications N Anxiety Disorder N Meniere's disease N Muscle, Joint, or Bone Problems N Obesity N Vision or Eye Problems N Arthritis N Infertility N Polyps N Mental Disorder N Cancer N Varicosities N Stroke N Endometriosis N Bladder or Kidney Problems N High Cholesterol N Liver Disease N Headaches N Fibromyalgia N Kidney Disease N Allergies/Hayfever N Heart Problems N Ear or Hearing Problems N Hospitalizations N Thyroid Problems N GI Problems N ADD/ADHD N Eating Disorder N Skin Problems N Anemia N MRSA exposure N Constipation N Mental Illness N Diabetes N Ovarian Cancer N Bedwetting N Seizures/Epilepsy N Tuberculosis N AIDS/HIV N Congestive Heart Failure (CHF) N Eczema N Abuse/Domestic Violence N Diverticulitis N Asthma N Reflux/GERD N Hepatitis N Heart Disease N Pulmonary Embolism N Chronic Ear Infections N Pre-Eclampsia N Hypertension N Chicken Pox N Autism Spectrum Disorder (ASD) N Osteoporosis N Thrombophilias N Gynecological History Statement/Question Response Date of Last Pap Smear 09/24/2022 Date of Last Mammogram 10/28/2022 Obstetrics History GPAL:G 3 P 2 0 1 0 Type Value Full Term 2 Spontaneous 1 Total 3 Immunizations Vaccine Type Date Status Note Provider Nam e and Address Organization Details Recorded Time COVID-19, mRNA, LNP-S, PF, 100 mcg/0.5mL dose or 50 mcg/0.25mL dose 11/18/2021 completed Not Available [facility] 3 01:32:08 Past Encounters Encounter ID Performer Location Encounter Start Date Encounter Closed Date Diagnosis/Indication Diagnosis SNOMED-CT Code Diagnosis ICD10 Code Diagnosis Note [id number] Lydia Holder MD [facility] [address] [place] [address] 06/01/2018 14:32:34 06/01/2018 16:03:43 Renal mass 091925069 N28.89 (left 5 mm) -- w/ fat consistenc y on CT from 10/15/17 Allergic rhinitis 534727 04 J30.9 Migraine with aura 59830 06 G43.109 (sometimes without aura) -- Diagnosis when patient was a teenager-- Diagnosis given by neurologis t when she was 11 years old.-- Had CT scan of head done without findings. Family his tory of diabetes mellitus 440006533 Z83.3 Hyperlipid emia screening 714325714 Z13.220 Active or passive immunization 097425976 Z23 Screening for malignant neoplasm of breast 292628314 Z12.31 Screening for malignant neoplasm of cervix 478630766 Z12.4 -- Currently following with gynecologi st Dr. Betancur Palpitations 70771504 R0 0.2 -- had seen cardiologi st Dr. Sen Wyatt ) in [place] and no findings [id number] Lydia Holder MD [facility] [address] [place] [address] 09/07/2018 14:59:39 09/07/2018 17:06:53 Adult health examination 108335201 Z00.00 Infection of sebaceous cyst 654986444 L72.3 Renal mass 879030702 N28 .89 (left 5 mm) -- w/ fat consistenc y on CT from 10/15/17 Allergic rhinitis 832984 04 J30.9 -- Controlled with Zyrtec & Flonase. Migraine with aura 54567 06 G43.109 (sometimes without aura) -- Diagnosis when patient was a teenager-- Diagnosis given by neurologis t when she was 11 years old.-- last headache was 1 week ago-- Had CT scan of head done without findings. Palpitations 32111028 R0 0.2 -- had seen cardiologi st Dr. Sen Wyatt ) in [place] and no findings Family his tory of diabetes mellitus 268639752 Z83.3 Hyperlipid emia screening 399610498 Z13.220 Active or passive immunization 255888815 Z23 Screening for malignant neoplasm of breast 747807311 Z12.31 Screening for malignant neoplasm of cervix 604642902 Z12.4 -- Currently following with gynecologi st Dr. [place] [id number] Lydia Holder MD [facility], [facility] [address] [facility] [address] [place] [address] 05/30/2020 15:39:28 06/06/2020 11:11:46 Renal mass 080101925 N28.89 (left 5 mm) -- w/ fat consistenc y on CT from 10/15/17-- pt re-advised to get CT scan done. Vitamin D deficiency 347 83385 E55.9 Hyperlipidemia 95696052 E78.5 Elevated Lipids -- issue Heart Healthy Diet and inform pt to avoid both Saturated Fat and foods high in Cholestero l. Recheck lipids around 12/17/18. Hepatitis C screening 41 0726377 Z11.59 Active or passive immunization 891228798 Z23 Screening for malignant neoplasm of breast 307269559 Z12.31 Screening for malignant neoplasm of cervix 531649003 Z12.4 -- Currently was following with gynecologi st Dr. Betancur but informed me she has a appt w/ a new [facility] (pt does not remember name of new Stope Miner). Family his tory of diabetes mellitus 247078085 Z83.3 Acute sinusitis 92070211 J01.90 [id number] Lydia Holder MD [facility] [employer] [address] [place] [address] 09/13/2020 11:04:46 09/13/2020 13:26:17 Adult health examination 411394702 Z00.00 Hyperlipidemia 77996651 E78.5 -- issued Heart Healthy Diet and inform pt to avoid both Saturated Fat and foods high in Cholestero l. -- you will also need to limit egg yolks to 2 yolks a week (but as many egg whites he wants). -- Avoid Santos, -- avoid Cheese (cheese on burgers, Pizza, lasagna, Liang, Parmesan), -- trim off fatty rubbery meat before consuming, -- avoid butter & Margarine, -- No whole milk or 2% milk (but 1%, 1/2% & fat free milk is fine).-- recheck labs 3 months from 09/13/20 Allergic rhinitis 510615 04 J30.9 -- Controlled with Zyrtec & Flonase. Hepatitis C screening 41 9984061 Z11.59 Ultrasound scan abnormal 882934628 R93.89 (right) -- previously showed fatty tissue Body mass index 20-24 - normal 567966841 Z68.24 -- pt is in the healthy weight category w/ a BMI of 24.4 (ideal is between 20-25) Active or passive immunization 511826027 Z23 Screening for malignant neoplasm of breast 613031228 Z12.31 Screening for malignant neoplasm of cervix 846652402 Z12.4 -- Currently was following with gynecologi st Dr. Betancur but informed me she has a appt w/ a new [employer] [facility]er in [place] (pt does not remember name of new Stope Miner). [id number] Lydia Holder MD [facility] [address] [place] [address] 10/13/2020 11:57:21 10/16/2020 11:16:47 COVID-19 639866906 U07.1 (dx'd on 06/01/20) -- still has some cough and mild ADEN Anxiety 60387159 F41.9 -- pt concerned about getting the vaccine and extremely worried about her parents getting the vaccine. Pt counseled on the risks of Covid infection vs Covid Vaccine. [id number] Lydia Holder MD [facility], [facility] [address] [facility] [address] [place] [address] 07/18/2021 10:15:20 07/18/2021 11:37:59 Anxiety 76111534 F41.9 -- pt concerned about getting the vaccine and extremely worried about her parents getting the vaccine. Pt counseled on the risks of Covid infection vs Covid Vaccine. COVID-19 562031195 U07.1 (dx'd on 06/01/20) -- completely recovered but more sensitive in her sinus; her perfumes are more overpoweri ng Family his tory of diabetes mellitus 886695990 Z83.3 Candidiasis of vagina 72 978385 B37.3 -- counseled on hygiene Lydia Holder MD [facility], [facility] [address] [facility] [address] [place] [address] 09/12/2021 09:05:24 09/12/2021 10:22:27 Hyperlipidemia 05405405 E78.5 -- issued Heart Healthy Diet and inform pt to avoid both Saturated Fat and foods high in Cholestero l. -- you will also need to limit egg yolks to 2 yolks a week (but as many egg whites he wants).-- Avoid Santos,-- avoid Cheese (cheese on burgers, Pizza, lasagna, Liang, Parmesan), -- trim off fatty rubbery meat before consuming, -- avoid butter & Margarine, -- No whole milk or 2% milk (but 1%, 1/2% & fat free milk is fine).-- recheck labs 3 months from 09/13/20 Adult [facility] examination 567022475 Z00.00 Acute dermatitis 2657460 6 L30.9 (2- 3 weeks duration -- started around Aug 2021) Body mass index 20-24 - normal 454853102 Z68.23 -- pt is in the healthy weight category w/ a BMI of 24.4 (ideal is between 20-25) Hepatitis C screening 41 8689472 Z11.59 -- tested negative for Hep C on 08/02/20 Active or passive immunization 458381354 Z23 -- pt decliined Flu shot-- pt advised to get Covid vaccine per CDCs guidelines Screening for malignant neoplasm of breast 652927074 Z12.31 -- done on 08/21/21 Screening for malignant neoplasm of cervix 032733068 Z12.4 -- Currently was following with gynecologi st Dr Eirn Monroy Cyst of skin 635931143 L 72.9 (sternal) -- pt has appt in Oct 05 2021 Fatigue 57737847 R53.83 (occasiona l) Vitamin D deficiency 347 52868 E55.9 (self reported) [id number] Lydia Holder MD [facility] [employer] [facility] [address] [place] [address] 05/21/2022 15:34:53 05/23/2022 15:24:43 Acute blepharitis 91242822 H01.009 -- pt can open eyes without and apparent discomfort . [id number] Lydia Holder MD [facility] [address] [place] [address] 06/06/2022 15:27:11 06/07/2022 10:50:42 Acute blepharitis 53738532 H01.009 -- pt still has no visual changes or any eye pain/disco mfort.-- but due to a tiny nodule on Left lateral upper lid pt want more direction. [id number] Lydia Holder MD [facility] [employer] [facility] [address] [place] [address] 07/17/2022 16:38:00 08/10/2022 14:54:27 Anxiety 42691790 F41.9 -- had palpitatio n and was very anxious; her BP was 163/[address] office in [facility]. Essential hypertension 93954839 I10 -- had elevated BPs at home and also at cardiologi st office.-- will issue Propranolo l 20 mg 1 tab q8 hours [id number] Lydia Holder MD [facility] [address] [place] [address] 09/23/2022 10:34:45 09/24/2022 13:58:32 Acute blepharitis 91888946 H01.009 (Rt eye)-- pt still has no visual changes or any eye pain/disco mfort.-- but due to a tiny nodule on Left lateral upper lid pt want more direction. Anxiety 78786622 F41.9 -- had palpitatio n and was very anxious; her BP was 163/[address] office in [facility]. [id number] Lydia Holder MD [employer] [address] [place] [address] 09/30/2022 08:56:21 10/15/2022 17:38:51 Adult health examination 020931422 Z00.00 Body mass index 20-24 - normal 693668950 Z68.23 -- pt is in the healthy weight category w/ a BMI of 23.9 (ideal is between 20-25) Hepatitis C screening 41 9202299 Z11.59 -- tested negative for Hep C on 08/02/20 HIV screening 107495464 Z11.4 Screening for malignant neoplasm of breast 631220951 Z12.31 -- done on 08/21/21 Screening for malignant neoplasm of cervix 266391877 Z12.4 -- Currently was following with gynecologi st Dr Erin Monroy Active or passive immunization 362235733 Z23 -- pt does not want Flu shot-- pt advised to get Covid vaccine per CDCs guidelines Anxiety 58697603 F41.9 -- controlled Headache 59733723 R51.9 -- normal neuro exam-- check labs [id number] Lydia Holder MD [employer] [address] [place] [address] 11/18/2022 14:35:43 11/22/2022 23:03:03 Acute urinary tract infection 925261800 N39.0 [id number] Freddy Gresham MD [employer] [facility] [address] [place] [address] 04/25/2023 11:35:26 04/25/2023 12:48:24 Boil of tunica vaginalis 61235487 N49.1 per Pt hist [id number] Lydia Holder MD [employer] [address] [place] [address] 09/10/2023 09:45:20 09/10/2023 11:06:14 Pain in right arm 387854777 M79.601 [id number] Lydia Holder MD [facility] [address] [place] [address] 10/15/2023 14:43:24 10/19/2023 22:20:44 Constipation 53299290 K59.00 -- due to oxycodone for her bicep tendon surgery Acute vaginitis 81580537 N76.0 -- from ABx given after surgery Essential hypertension 57452820 I10 -- had elevated BPs at home and also at cardiologi st office.-- will issue Propranolo l 20 mg 1 tab q8 hours;-- pt advised to call back w/ BP & heart rate in the next 2 days (pt counseled on drug interactio n between Propranolo l and Oxycodone) . [id number] Lydia Holder MD [facility] [address] [facility] [address] [place] [address] 12/23/2023 09:18:32 12/23/2023 10:33:06 Adult health examination 510459687 Z00.00 Upper resp iratory infection 80557202 J06.9 Essential hypertension 34046397 I10 -- had elevated BPs at home and also at cardiologi st office.-- will issue Propranolo l 20 mg 1 tab q8 hours;-- pt advised to call back w/ BP & heart rate in the next 2 days (pt counseled on drug interactio n between Propranolo l and Oxycodone) . Anxiety 15403672 F41.9 -- controlled Allergic rhinitis 571294 04 J30.9 -- Controlled with Zyrtec & Flonase. Chronic constipation 236 779914 K59.09 -- resolved w/ increased fluid intake Body mass index 25-29 - overweight 541107080 Z68.26 Hepatitis C screening 41 9919200 Z11.59 -- tested negative for Hep C on 08/02/20 HIV screening 077030614 Z11.4 Active or passive immunization 231050875 Z23 -- pt does not want Flu shot-- pt advised to get Covid vaccine per CDCs guidelines Screening for malignant neoplasm of colon 628493528 Z12.11 -- pt does not want colonoscop y; pt agrees to cologuard testing Screening for malignant neoplasm of breast 433559638 Z12.31 -- done on 08/21/21 Gy[address] examination 91111708 Z01.419 Hyperlipidemia 34096041 E78.5 -- issued Heart Healthy Diet and inform pt to avoid both Saturated Fat and foods high in Cholestero l. -- you will also need to limit egg yolks to 2 yolks a week (but as many egg whites he wants).-- Avoid Santos,-- avoid Cheese (cheese on burgers, Pizza, lasagna, Liang, Parmesan), -- trim off fatty rubbery meat before consuming, -- avoid butter & Margarine, -- No whole milk or 2% milk (but 1%, 1/2% & fat free milk is fine).-- recheck labs 3 months from 09/13/20 Vitamin D deficiency 347 32737 E55.9 (History of) Inadequate intake of ascorbic acid 078353241 E54 -- pt aware that Vit C may not be covered but requesting lab testing for Vit C level anyway Health Concerns Section Related Observation LastModified by Organization Detai ls LastModified Time None Recorded Concern Status LastModified by Organization Details LastModified Time None Recorded Advance Directives Directive N: Payers Encounter Date Sequence Insurance Name Policy Number Policy Mederos Covered Member ID Mederos Member ID Guarantor Name 11/18/2022 1 [facility] [id number] Tayler Linares [id number] Tayler Linares 04/25/2023 1 [facility] [id number] Tayler Linares [id number] Tayler Linares 09/10/2023 1 [facility] [id number] Tayler Linares [id number] Tayler Linares 10/15/2023 1 [facility] [id number] Tayler Linares [id number] Tayler Linares 12/23/2023 1 [facility] [id number] Tayler Linares [id number] Tayler Linares Notes Date Note Type Note Provider Name and Address Organization Details Recorded Time 11/18/2022 text/html Pt on [employer] for UTI sx. Pt has picked up Nitrofurantoin ABx and started on it 2 days ago and has used 4 pills. She still has achiness on her lower back & lower sides (near the iliac crest),She had mild blood ? pink in urine the beginning. No more blood today. She had subjective fever, but none today. Lydia Holder MD [address] [facility] [address], [place], [address], [facility] 11/18/2022 21:43:41 04/25/2023 text/html Hypertension F/UReported bypatient.Medication s:taking medications as directed; no side effects from medication Lifestyle:regular exercise; limiting/avoiding salt; compliant with low salt diet Associated Symptoms:no dizziness; no lightheadedness; no chest pain; no shortness of breath; no palpitations; no edema; no calf pain with exertion; no headache boil in the vag area 2 weeks , betting bigger , painful , low grad fever , low risk for STD Freddy Gresham MD [address] [facility] [address], [place], [address], [facility] 04/25/2023 12:47:15 09/10/2023 text/html Pt was lifting u p the window when she felt sudden sharp pain on her Rt forearm near the elbow. Pt noticed bruising and slight swelling short after.Pain has improved w/ otc Ibuprofen. Pt also tingling in her fingers. Lydia Holder MD [address] [facility] [address], [place], [address], [facility] 09/10/2023 11:04:53 10/15/2023 text/html Pt on [employer] for concerns about Oxycodone interacting w/ Propranolol. She has not taken Propranolol for a while and her home BP today is around 150/100; and pulse around 78 bpm. Pt has not c/o except itching and constipation since on Oxycodone. No swelling, ADEN/SOB or hives. Pt also requesting Diflucan for yeast infection -- since ABx during surgery. Lydia Holder MD [address] [facility] [address], [place], [address], [facility] 10/15/2023 20:31:24 12/23/2023 text/html Pt comes in w/ c /o ? swollen lymph nodes, sore throat, nasal drainage. No f/c, n/v, diarrhea, or bodyaches. Pt is also due for annual PE. Pt feels well and has no c/o. Pt has no new sx and no increasing sx. Patient denies any jaw or neck discomfort, left arm pain/left arm discomfort, chest discomfort/pain, diaphoresis, breathing symptoms/chest tightness, indigestion sx, n/v, any angina equivalent symptoms, etc. Lydia Holder MD [address] [place] [address] [address], [place], [address], [facility] 12/23/2023 10:29:28 OBGyn Episode No OBEpisode recorded.
--- OUTSIDE RECORDS SUMMARY | 2024-12-29 17:55 | XMS_ITS | Referral Summary ---
Author Organization [facility] Address [address] [place] [address] Care Team Providers Care Artist And Repertoire Manager Name Role Phone Alexys Scott MD Primary Care Provider [phone] Allergies Active Allergy Reactions Criticality Noted Date [...] facial pain 08/05/2016 Cephalalgia 08/05/2016 Epiphora 08/05/2016 Social History Tobacco Use Types Packs/Day Years Used Date Smoking Tobacco: Never Personal Safety Answer Date Recorded Getting School Help Needed Not on file 09/15 Comments Unknown Sex and Gender Information Value Date Recorded Sex Assigned at Not on file Legal Sex Female 9:32 PM PROTOTYPE ENGINEER MANAGER Gender Identity Not on file Sexual Orientation Not on file Last Filed Vital Signs Vital Sign Reading Time Taken Comments Blood Pressure 163/97 09/24/2023 11:44 AM PROTOTYPE ENGINEER MANAGER Pulse 79 09/24/2023 11:44 AM PROTOTYPE ENGINEER MANAGER Temperature 37.1 C (98.7 F) 01/12/2015 9:28 AM CDT Respiratory Rate - - Oxygen Saturation 100% 01/12/2015 9:28 AM CDT Inhaled Oxygen Concentration - - Weight 72.1 kg (159 lb) 09/24/2023 11:44 AM PROTOTYPE ENGINEER MANAGER Height 162.6 cm (5' 4 ) 09/24/2023 11:44 AM PROTOTYPE ENGINEER MANAGER Body Mass Index 27.29 09/24/2023 11:44 AM PROTOTYPE ENGINEER MANAGER Plan of Treatment Not on file Insurance , [facility] H[facility]/PPO Address: [facility] [address] [place] [address] [facility]/[place]: [place] [address] Care Teams Artist And Repertoire Manager Relationship Specialty Start Date End Date Alexys Scott MD [address] [facility] [address] [place] [id number] PCP - General Internal Medicine 06/07/22
--- OUTSIDE RECORDS SUMMARY | 2024-12-29 17:55 | XMS_ITS | Data Portability ---
Author Organization Jony DENIS Address [address] [facility] [place] [address] Assessment No assessment recorded. Plan of Treatment Reminders Order Date Submit Date Provider Last Modified By Organization Details Last Modified Time Details Appointments None recorded. Lab lipid panel, serum 2017 018 [facility], [address] [place] [address], [address], [place], [address], 8 06:06:43 BMP, serum or plasma 2017 018 [facility], [address] [place] [address], [address], [place], [address], 8 06:06:43 HbA1c (hemoglobi n A1c), blood 2017 018 [facility], [address] [place] [address], [address], [place], [address], 8 06:06:44 urinalysis , dipstick 2016 017 [email or web address] In-Office Order, Internal Use Only DO Not Attach Compendium DO Not Attach Compendium, Do Not Delete/merge, [id number] 7 22:41:37 Referral physical therapist referral 2017 018 [email or web address] 1 [facility] - Outpatient Physical Therapy [facility], [address] [facility], [place], [address], 8 08:36:42 neurologis t referral 2017 018 [email or web address] [facility]erral [facility], [address] [place], [address], 9 11:10:35 Procedures None recorded. Surgeries None recorded. Imaging CT, maxillofac ial, w/o contrast [address] [facility], [address], [place], [address], 8 13:32:02 Medication Orders meloxicam 7.5 mg tablet 2017 018 INTERFACE [id number], [address], [place], [address], 8 02:59:13 Flonase Allergy Relief 50 mcg/actuat ion nasal spray,susp ension 2016 017 INTERFACE [id number], [address], [place], [address], 7 10:34:22 verapamil 80 mg tablet 2016 017 [email or web address] [id number], [address], [place], [address], 8 12:50:10 Patient TargetsNo targets recorded. Patient Instructions Encounter Date Encounter Id Patient Instructions Last Modified By Organization Details Last Modified Time 12/04/2017 [id number] I certify that I was present and available in the [facility] for discussion of this patient. I have reviewed the resident's note and agree with the stated assessment and treatment plan. [email or web address] Not available 12/15/2017 14:35:16 05/07/2018 [id number] I certify that I was present and available in the family medicine clinic for discussion of this patient. I have reviewed the resident's note and agree with the stated assessment and treatment plan. MONICA [email or web address] Not available 05/07/2018 21:55:29 Reason for Referral Referring Physician: Eleazar [email or web address], Legal Administrative Assistant, Encounter Date: 12/04/2017 Neurologist Referral for Ten vanessa-type headache reoccuring migraines, had prior neurologist and wants to reestablish Referring Physician: Eleazar Rosenberg, Legal Administrative Assistant, Encounter Date: 12/04/2017 Results Created Date Observation Date Name Description Value Unit Range Abnormal Flag Note LastModifiedBy Organization Detail LastModifiedTime 04/17/20 17 04/17/2017 urina lysis , dipst ick Leukocytes Negati ve Not Available In-Office Order Internal Use Only DO Not Attach Compendium DO Not Attach Compendium, Do Not Delete/merge, [id number] 04/17/2017 17:21:26 04/17/20 17 04/17/2017 urina lysis , dipst ick Nitrite negati ve Not Available In-Office Order Internal Use Only DO Not Attach Compendium DO Not Attach Compendium, Do Not Delete/merge, [id number] 04/17/2017 17:21:26 04/17/2004/17/2017 urina lysis , dipst ick Urobilinogen .2 Not Available In-Of fice Order Internal Use Only DO Not Attach Compendium DO Not Attach Compendium, Do Not Delete/merge, [id number] 04/17/2017 17:21:26 04/17/20 17 04/17/2017 urina lysis , dipst ick Protein Negati ve Not Available In-Office Order Internal Use Only DO Not Attach Compendium DO Not Attach Compendium, Do Not Delete/merge, [id number] 04/17/2017 17:21:26 04/17/2004/17/2017 urina lysis , dipst ick pH 6.5 Not Available In-Office Order Internal Use Only DO Not Attach Compendium DO Not Attach Compendium, Do Not Delete/merge, [id number] 04/17/2017 17:21:26 04/17/20 17 04/17/2017 urina lysis , dipst ick Blood Hemoly zed: Trace Not Available In-Office Order Internal Use Only DO Not Attach Compendium DO Not Attach Compendium, Do Not Delete/merge, [id number] 04/17/2017 17:21:26 04/17/20 17 04/17/2017 urina lysis , dipst ick Specific Salome 1.030 Not Available In-Off ice Order Internal Use Only DO Not Attach Compendium DO Not Attach Compendium, Do Not Delete/merge, [id number] 04/17/2017 17:21:26 04/17/20 17 04/17/2017 urina lysis , dipst ick Ketone Negati ve Not Available In-Office Order Internal Use Only DO Not Attach Compendium DO Not Attach Compendium, Do Not Delete/merge, [id number] 04/17/2017 17:21:26 04/17/20 17 04/17/2017 urina lysis , dipst ick Bilirubin Negati ve Not Available In-Office Order Internal Use Only DO Not Attach Compendium DO Not Attach Compendium, Do Not Delete/merge, [id number] 04/17/2017 17:21:26 04/17/20 17 04/17/2017 urina lysis , dipst ick Glucose Negati ve Not Available In-Office Order Internal Use Only DO Not Attach Compendium DO Not Attach Compendium, Do Not Delete/merge, [id number] 04/17/2017 17:21:26 04/17/20 17 04/17/2017 urina lysis , dipst ick Appearance Slight ly Cloudy Not Available In-Office Order Internal Use Only DO Not Attach Compendium DO Not Attach Compendium, Do Not Delete/merge, [id number] 04/17/2017 17:21:26 04/17/20 17 04/17/2017 urina lysis , dipst ick Color Yellow Not Available In-Office Order Internal Use Only DO Not Attach Compendium DO Not Attach Compendium, Do Not Delete/merge, [id number] 04/17/2017 17:21:26 11/08/19 17 11/11/2016 CT + NG + TV, DNA, urine /swab chlamydia by CHRISSY NEGATI VE negati ve Not Available [facility]) [address] [facility] [address], [place], [address], 11/11/2016 06:04:39 11/08/19 17 11/11/2016 CT + NG + TV, DNA, urine /swab gonococcus by CHRISSY NEGATI VE negati ve Not Available [facility] ([facility]) [address] [place], [address], 11/11/2016 06:04:39 11/08/19 17 11/11/2016 CT + NG + TV, DNA, urine /swab trich vag by CHRISSY NEGATI VE negati ve Not Available [facility] ([facility]) [address] [place], [address], 11/11/2016 06:04:39 11/08/19 17 11/08/2016 HCG, intac t + beta subun it, quant , serum or plasm a HCG,beta subunit,qnt, serum 2725 mIU/m L FEMAL E (NON- PREGN ANT) 0 - 5 (POST MENOP AUSAL ) 0 - 8 FEMAL E (PREG NANT) WEEKS OF GESTA TION 3 6 - 71 4 10 - 750 5 289 - 1956 6 890 - 43997 7 8186 -8919 63 8 01384 -9533 71 9 36682 -2544 10 10 89354 -6759 77 12 74095 -2106 12 14 06513 - 51389 15 67003 - 62294 16 3074 - 13548 17 8309 - 13184 18 0886 - 54849 LILLIAN ECLIA METHO DOLOG Y Not Available [facility] ([facility]) [address] [place], [address], 11/11/2016 06:04:39 11/08/19 17 11/08/2016 RPR (rapi d plasm a reagi n), serum RPR NON REACTI VE non reacti ve Not Available [facility] ([facility]) [address] [place], [address], 11/11/2016 06:04:40 11/08/19 17 11/08/2016 HIV 1+2 AB + HIV 1 p24 Ag, quali tativ e immun oassa y, serum HIV screen 4TH generation wrfx NON REACTI VE non reacti ve Not Available [facility] ([facility]) [address] [place], [address], 11/11/2016 06:04:40 11/08/19 17 11/07/2016 hepat itis C Ab, signa l-to- cutof f, serum or plasm a comment: COMMEN T NON REACT CARLOS EDUADRO HCV ANTIB NATASHA SCREE N IS CONSI STENT WITH NO HCV INFEC TION, UNLES S RECEN T INFEC TION IS SUSPE CTED OR OTHER EVIDE NCE EXIST S TO INDIC ATE HCV INFEC TION. Not Available [facility] ([facility]) [address] [facility], [place], [address], 11/11/2016 06:04:41 11/08/19 17 11/08/2016 hepat itis C Ab, signa l-to- cutof f, serum or plasm a HCV Ab 0.2 S/co_ ratio 0.0-0. 9 Not Available [facility] ([facility]) [address] [place], [address], 11/11/2016 06:04:41 11/08/19 17 11/08/2016 HBsAg (hepa titis B surfa ce Ag), EIA, serum HBsAg screen NEGATI VE negati ve Not Available [facility] ([facility]) [address] [place], [address], 11/11/2016 06:04:41 11/08/19 17 11/08/2016 Hepat itis B virus core Ab, qual immun oassa y, serum or plasm a hep B core Ab, tot NEGATI VE negati ve Not Available [facility] ([facility]) [address] [place], [address], 11/11/2016 06:04:42 04/17/20 17 04/18/2017 cultu re, urine chlamydia trachomatis, CHRISSY NEGATI VE negati ve Not Available [facility] ([facility]) [address] [place], [address], 04/19/2017 06:03:12 04/17/20 17 04/18/2017 cultu re, urine neisseria gonorrhoeae, CHRISSY NEGATI VE negati ve Not Available [facility] ([facility]) [address] [place], [address], 04/19/2017 06:03:12 04/17/20 17 04/19/2017 cultu re, urine urine culture, routine FINAL REPORT Not Available [facility] ([facility]) [address] [place], [address], 04/19/2017 06:03:12 04/17/20 17 04/19/2017 cultu re, urine result 1 COMMEN T MIXED UROGE NITAL JORGE 10,00 0-25, 000 COLON Y FORMI NG UNITS PER ML Not Available [facility] ([facility]) [address] [place], [address], 04/19/2017 06:03:12 04/17/20 17 04/18/2017 RPR (rapi d plasm a reagi n), serum RPR NON REACTI VE non reacti ve Not Available [facility] ([facility]) [address] [place], [address], 04/19/2017 06:03:13 04/17/20 17 04/18/2017 HIV 1+2 AB + HIV 1 p24 Ag, quali tativ e immun oassa y, serum HIV screen 4TH generation wrfx NON REACTI VE non reacti ve Not Available [facility] ([facility]) [address] [place], [address], 04/19/2017 06:03:14 04/17/20 17 04/17/2017 hepat itis C Ab, signa l-to- cutof f, serum or plasm a comment: COMMEN T NON REACT CARLOS EDUARDO HCV ANTIB NATASHA SCREE N IS CONSI STENT WITH NO HCV INFEC TION, UNLES S RECEN T INFEC TION IS SUSPE CTED OR OTHER EVIDE NCE EXIST S TO INDIC ATE HCV INFEC TION. Not Available [facility] ([facility]) [address] [place], [address], 04/19/2017 06:03:14 04/17/20 17 04/18/2017 hepat itis C Ab, signa l-to- cutof f, serum or plasm a HCV Ab 0.1 S/co_ ratio 0.0-0. 9 Not Available [facility] ([facility]) [address] [place], [address], 04/19/2017 06:03:14 04/17/20 17 04/18/2017 HBsAg (hepa titis B surfa ce Ag), EIA, serum HBsAg screen NEGATI VE negati ve Not Available [facility] ([facility]) [address] [place], [address], 04/19/2017 06:03:15 04/17/20 17 04/18/2017 Hepat itis B virus core Ab, qual immun oassa y, serum or plasm a hep B core Ab, tot NEGATI VE negati ve Not Available [facility] ([facility]) [address] [facility], [place], [address], 04/19/2017 06:03:16 05/07/20 18 05/08/2018 BMP, serum or plasm a glucose 95 mg/dL 65-99 Not Available [facility] ([facility]) [address] [place], [address], 05/08/2018 06:06:43 05/07/20 18 05/08/2018 BMP, serum or plasm a BUN 13 mg/dL 6-20 Not Available [facility] ([facility]) [address] [place], [address], 05/08/2018 06:06:43 05/07/20 18 05/08/2018 BMP, serum or plasm a creatinine 0.98 mg/dL 0.57-1 .00 Not Available [facility] ([facility]) [address] [place], [address], 05/08/2018 06:06:43 08/30/20 18 05/08/2018 BMP, serum or plasm a eGFR if nonafricn AM 73 mL/mi n/1.7 3 >59 Not Available [facility] ([facility]) [address] [facility] [place], [address], 05/08/2018 06:06:43 05/07/20 18 05/08/2018 BMP, serum or plasm a eGFR if africn AM 84 mL/mi n/1.7 3 >59 Not Available [facility] ([facility]) [address] [facility] [place], [address], 05/08/2018 06:06:43 05/07/20 18 05/08/2018 BMP, serum or plasm a BUN/creatini ne ratio 13 9-23 Not Available [facility] [address] [facility] [place], [address], 05/08/2018 06:06:43 05/07/20 18 05/08/2018 BMP, serum or plasm a sodium 141 mmol/ L 134-14 4 Not Available [facility] ([facility]) [address] [facility] [place], [address], 05/08/2018 06:06:43 05/07/20 18 05/08/2018 BMP, serum or plasm a potassium 4.2 mmol/ L 3.5-5. 2 Not Available [facility] ([facility]) [address] [facility] [place], [address], 05/08/2018 06:06:43 05/07/20 18 05/08/2018 BMP, serum or plasm a chloride 102 mmol/ L 96-106 Not Available [facility] ([facility]) [address] [facility] [place], [address], 05/08/2018 06:06:43 05/07/20 18 05/08/2018 BMP, serum or plasm a carbon dioxide, total 25 mmol/ L 20-29 Not Available [facility] ([facility]) [address] [place], [address], 05/08/2018 06:06:43 05/07/20 18 05/08/2018 BMP, serum or plasm a calcium 9.6 mg/dL 8.7-10 .2 Not Available [facility] ([facility]) [address] [place], [address], 05/08/2018 06:06:43 05/07/20 18 05/08/2018 lipid panel , serum cholesterol, total 203 mg/dL 100-19 9 above high normal Not Available [facility] ([facility]) [address] [place], [address], 05/08/2018 06:06:43 05/07/20 18 05/08/2018 lipid panel , serum triglyceride s 57 mg/dL 0-149 Not Available [facility] [address] [place], [address], 05/08/2018 06:06:43 05/07/20 18 05/08/2018 lipid panel , serum HDL cholesterol 61 mg/dL >39 Not Available [facility] [address] [place], [address], 05/08/2018 06:06:43 05/07/20 18 05/08/2018 lipid panel , serum VLDL cholesterol elizabeth 11 mg/dL 5-40 Not Available [facility]) [address] [place], [address], 05/08/2018 06:06:43 05/07/20 18 05/08/2018 lipid panel , serum LDL cholesterol calc 131 mg/dL 0-99 above high normal Not Available [facility] ([facility]) [address] [place], [address], 05/08/2018 06:06:43 05/07/20 18 05/08/2018 lipid panel , serum comment: VOUCHER EXAMINER Not Available [facility] ([facility]) [address], [place], [address], 05/08/2018 06:06:43 05/07/20 18 05/08/2018 HbA1c (hemo globi n A1c), blood hemoglobin A1C 5.4 % 4.8-5. 6 Predi abete s: 5.7 - 6.4 Diabe chato: >6.4 Glyce lobito contr ol for adult s with diabe chato: <7.0 Not Available [facility] ([facility]) [address] [facility], [place], [address], 05/08/2018 06:06:44 11/07/19 17 11/06/2016 US OB under 14 weeks July LINARESJOHN SAGAR 6847 ADMIT/ SERVIC E DATE: ACCT: [id number] DISCHA RGE DATE: : 1979 SEX: F ORD SITE: [facility] PT TYPE: REG CLI KARLEE PACHECO MD: EDILBERTO TY,VIOLETTA X R DO STUDY DATE REPORT # ORDER # EXT ORDER ID [id number] 2.001 PROC CODE: OB<14W KS PROCED URE DESCRI PTION: US OB UNDER 14 WEEKS I MPRESS ION: 1. POSSIB LE EARLY INTRAU TERINE GESTAT IONAL SAC MEASUR ING 6.8 MM OUT OF MEASUR EMENT RANGE FOR DATING . SMALL YOLK SAC IS BELIEV ED TO BE IDENTI FIED. OBSTET STAR AND ULTRAS OUND IMAGIN G FOLLOW -UP RECOMM ENDED FOR CONFIR MATION . 2. LEFT PROBAB LE CORPUS LUTEUM . EXAMIN ATION: EARLY OB PELVIC ULTRAS OUND, FIRST TRIMES TER LESS THAN 14 WEEKS ACCESS ION: [id number] CLINIC AL HISTOR Y: PREGNA NCY CONFIR MATION AND DATING . LMP 09/28/ 017 COMPAR BHARAT: NONE TECHNI QUE: TRANSA BDOMIN AL AND TRANSV AGINAL EXAMIN ATION OF THE PELVIS WAS PERFOR MED UTILIZ ING TRANSA BDOMIN AL APPROA CH TO ASSESS GRAYSC VIOLETTA APPEAR ANCE, COLOR DOPPLE R FLOW. FINDIN GS: UTERUS MEASUR ES 8.0 X 4.7 X 5.1 CM. THERE IS A INTRAU TERINE ANECHO IC CYSTIC STRUCT URE THAT COULD REPRES ENT REPRES ENT AN EARLY GESTAT IONAL SAC MEASUR ING 6.8 MM. THIS IS OUT OF MEASUR EMENT RANGE FOR DATING . 1.3 MM YOLK SAC BELIEV ED TO BE IDENTI FIED. NO POLE OR CARDIA C ACTIVI TY. NO UTERIN E MASSES . RIGHT OVARY MEASUR ES 2.6 X 1.0 X 1.9 CM. LEFT OVARY MEASUR ES 2.0 X 2.1 X 2.4 CM. THERE IS A THICK- WALLED CYSTIC STRUCT URE IN THE LEFT OVARY MEASUR ING 1.5 X 1.2 X 1.5 CM LIKELY REPRES ENTING A CORPUS LUTEUM . NO ADNEXA L MASS. NO SIGNIF ICANT FREE FLUID. SCRATC H ELECTR ONICAL LY SIGNED BY: ANIYAH MAX 11/07/19 17 4:17 PM [email or web address] [address] [facility], [place], [address], 11/07/2016 15:19:17 12/04/19 18 06/26/2017 CT, anton etienne ial, w/o contr ast No observ ation record ed. [facility] [address] [place] [address], [address], 12/30/2017 11:32:37 12/04/19 18 06/26/2017 CT, maxil lofac ial, w/o contr ast No observ ation record ed. [facility] Not Available 2017 14:11:51 Result Notes None recorded. Problems Name Problem SNOMED Code Status Onset Date Resolution Date Notes Provider Name and Address Organization Details Recorded Time [facility] 506719743 Active Ajit Robacker null, [place] - [facility] 5 11:24:00 Syncope 858933003 Active Ajit Robacker [place], [place] [facility] 5 09:57:22 Migraine 55527715 Active Ajit Robacker [place], [place] - [facility] 5 09:57:22 Sinusitis 88270535 Ibrahima Willett null, [place] - [facility] 6 12:43:27 Elevated blood-pressure reading without diagnosis of hypertension 428996805 Ibrahima [place] null, [place] - [facility] 6 12:43:27 Problem Notes None recorded. Procedures Surgical History None recorded. Imaging Results Imaging Date Name Status LastModified by Organiz jess Details LastModified Time 11/06/2016 US OB under 14 weeks completed [email or web address] [address] [facility], [place], [address], 11/07/2016 15:19:17 06/26/2017 CT, maxillofacial , w/o contrast completed [facility] [address] [place], [address], 12/30/2017 11:32:37 06/26/2017 CT, maxillofacial , w/o contrast completed [facility] Information not available 12/30/2017 14:11:51 Procedure Notes None recorded. Medical Equipment None Reported. Allergies Allergen ID Allergen Name Allergen Category Reaction Reaction Severity Criticality Documentation Date Start Date Code Code System Note Provider Name and Address Organization Details Recorded Time 323734 doxycycli ne Not available Not available Not available Not available 12/04/2017 3640 RxNorm Not Available Not Available Not Available 13801 clindamyc in Not available Not available Not available Not available 01/24/2015 2582 RxNorm Not Available Not Available Not Available Medications Name Sig Start Date Stop Date Status Note LastModified by Organization Details LastModified Time amoxicillin 500 mg capsule active Not Available Not Available Not Available Monistat 3 200 mg/5 gram (4 %) vaginal cream Insert 1 applicato rful every day by vaginal route at bedtime. 12/13 completed Not Available Not Available Not Available doxycycline hyclate 100 mg capsule 12/13 completed Not Available Not Available Not Available fluconazole 150 mg tablet Take one tablet, po, today. active Not Available Not Available No t Available hydrocodone 5 mg-acetamin ophen 325 mg tablet 12/13 completed Not Available Not Available Not Available Levaquin 750 mg tablet Take 1 tablet every day by oral route for 7 days. 12/13 completed Not Available Not Available Not Available metronidazo le 0.75 % (37.5 mg/5 gram) vaginal gel active Not Available Not Available Not Available meloxicam 7.5 mg tablet Take 1 tablet every day by oral route. active Not Available Not Available No t Available doxycycline monohydrate 100 mg capsule Take 1 capsule every day by oral route. active Not Available Not Available No t Available prednisone 50 mg tablet 12/13 completed Not Available Not Available Not Available montelukast 10 mg tablet 12/13 completed Not Available Not Available Not Available verapamil 80 mg tablet Take 1 tablet 3 times a day by oral route as directed. 05/08 completed Not Available Not Available Not Available methylpredn isolone 4 mg tablets in a dose pack 12/13 completed Not Available Not Available Not Available losartan 50 mg-hydrochl orothiazide 12.5 mg tablet 12/13 completed Not Available Not Available Not Available hydrocortis one 2.5 % topical ointment active Not Available Not Available Not Available fluticasone propionate 50 mcg/actuati on nasal spray,suspe nsion INSTILL 2 SPRAYS EVERY DAY DIRECTED. active Not Available Not Available No t Available doxycycline hyclate 100 mg tablet active Not Available Not Available No t Available neomycin-po lymyxin-hyd rocort 3.5 mg-10,000 unit/mL-1 % ear drops,susp 12/13 completed Not Available Not Available Not Available azithromyci n 500 mg tablet 12/13 completed Not Available Not Available Not Available Zyrtec 10 mg capsule Take 1 capsule every day by oral route. active Not Available Not Available No t Available Vitals Date Recorded Body height Body mass index (BMI) Body weight Body temperature Heart rate Oxygen saturation Oxygen saturation in Arterial blood by Pulse oximetry Systolic blood pressure Diastolic blood pressure Provider Name and Address Organization Details Last Updated DateTime 8 164.465 cm 26 kg/m2 48033.2 2 g 99.6 [degF] 87 /min 95 % 95 % 134 mm[Hg] 94 mm[Hg] Renae Blandon CMA [place] - [facility] 8 14:11:53 Date Recorded Body height Body mass index (BMI) Body weight Heart rate Oxygen saturation Oxygen saturation in Arterial blood by Pulse oximetry Body temperature Respiratory rate Systolic blood pressure Diastolic blood pressure Provider Name and Address Organization Details Last Updated DateTime 8 164.465 cm 24.7 kg/m2 65053.8 8 g 66 /min 95 % 95 % 98.2 [degF] 16 /min 120 mm[Hg] 88 mm[Hg] Magen Patel CMA [facility] 8 09:40:39 Date Recorded Body height Body weight Body mass index (BMI) Heart rate Body temperature Systolic blood pressure Diastolic blood pressure Provider Name and Address Organization Details Last Updated DateTime 7 164.465 cm 46113.0 3 g 25.7 kg/m2 76 /min 98.5 [degF] 142 mm[Hg] 90 mm[Hg] Keyla Noel CMA [facility] 7 16:45:43 Date Recorded Body height Body weight Body mass index (BMI) Body temperature Heart rate Systolic blood pressure Diastolic blood pressure Provider Name and Address Organization Details Last Updated DateTime 7 164.465 cm 22441.6 3 g 25.7 kg/m2 98.4 [degF] 68 /min 144 mm[Hg] 100 mm[Hg] Tasha Baron MA [facility] 7 09:40:40 Date Recorded Systolic blood pressure Diastolic blood pressure Provider Name and Address Organization Details Last Updated DateTime 12/13/2016 142 mm[Hg] 98 mm[Hg] Ramírez Wolf DO Attn: Accounting,[address] [place], [address], [facility] 12/13/2016 10:32:10 Date Recorded Body height Body mass index (BMI) Body weight Body temperature Heart rate Systolic blood pressure Diastolic blood pressure Provider Name and Address Organization Details Last Updated DateTime 7 164.465 cm 25 kg/m2 39427.2 6 g 98.4 [degF] 90 /min 140 mm[Hg] 96 mm[Hg] Keturah Haney MA [facility] 7 17:10:51 Social History Question Answer Notes LastModified by Organizat ion Details LastModified Time Tobacco Smoking Status Never Smoker Renae Blandon CMA null, [place] - [facility] 01/24/2015 14:14:10 What Was The Date Of Your Most Recent Tobacco Screening? 05/07/2018 Information n ot available 04/01/2019 Sex: Unknown Functional Status None recorded. Mental Status None recorded. Family History Relationship Description Onset Age of this Age Resolved Age Notes LastModified by Organization Details LastModified Time Mother Essential hypertension [email or web address] Not available 09:48:00 Mother Type 2 diabetes mellitus [email or web address] Not available 2017 09:50:54 Maternal Grandmother Type 2 diabetes mellitus [email or web address] Not available 2017 10:44:05 Medical History No medical history recorded. Gynecological HistoryNo gynecological history recorded. Obstetrics History GPAL:G 0 P 0 0 0 0 Past Encounters Encounter ID Performer Location Encounter Start Date Encounter Closed Date Diagnosis/Indication Diagnosis SNOMED-CT Code Diagnosis ICD10 Code Diagnosis Note [id number] Ajit Bill e [facility] ([facility]) [address] [place] [address] 01/24/2015 14:02:48 01/24/2015 14:52:40 Mass of submental region 224193906 [id number] Ajit Brandt [facility] ([facility]) [address] [place] [id number] 2 08/11/2015 09:19:24 08/12/2015 20:43:05 Syncope 904297311 R55 Migraine 05544263 G43.90 9 [id number] [facility] ([facility]) [address] [place] [id number] 2 11/13/2015 11:22:14 11/14/2015 03:47:25 Sinusitis 80633705 J32.9 Unusual difficulty with antibiotic s for sinusitis As she has been unable to take augmentin and doxy, will switch to levaquin for 7 days Can use azithromyc in if she is unable to tolerate levaquin Can use steroids per ENT if so desired Keep f/u with ENT to monitor cyst Elevated blood-pressure reading without diagnosis of hypertension [id number] R03.0 Monitor BPs Advised to keep log at home and bring readings into Dr. Bose Hard to gauge today given lots of pain and illness [id number] DO [facility] ([address]) [address] [place] [address] 11/05/2016 15:59:08 11/06/2016 10:29:57 [id number] Z33.1 Lengthy discussion (>15mins) discussing , options, and general counseling Only had home test so far so will get quant to see if that matches with LMP dating and confirm no evidence of early miscarriag e No reported rape or abuse Would like more time to process, gather more informatio n before decision is made Offered quick f/u with myself and with Josey grover [facility] risk of sexually transmitted infection [id number] Z20.2 Will get screening for STDs Discussed time frame for repeat testing given seroconver vanessa course of viral STIs She VU Candidiasis of vagina [id number] B37.3 Classic symptoms - will treat empiricall y F/u with no improvemen t for actual exam and testing [id number] DO [facility]ri [facility] ([address]) [address] [place] [address] 11/15/2016 12:01:59 11/18/2016 10:57:43 [id number] Z33.1 Appears that she is going to pursue an abortionWe spent at least 20 mins discussing this including safety, need for additional procedures /antibioti cs, alternativ es such as parenting and adoption Epidermoid cyst [id number] L72.0 Benign appearing EIC on L chestDiscu ssed removing it as it has been bothering herShe doesn't like the idea of surgery to remove it. Monitor [id number] DO [facility]ri [facility] ([address]) [address] [place] [address] 12/03/2016 16:32:10 12/04/2016 14:13:25 Contraception care [id number] Z30.40 Approximat ye 1 week out from an - having emotional distress from the procedure and decisionsp ent >20mins counseling Bleeding improving, no other symptomsCo ncerned about a possible yeast infection? Encouraged things to help take care of herself - talking with close friends, light exercise, eating well, etc.Keep appt with Josey Mccurdy uraged her to decide on control - if she wants permanent she needs to make appt with OBGYN. 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 second opinion at [facility] said to monitorLas t scan a year ago - will get repeat to see if its grown and potentiall y related to headaches. Restart flonase Cluster headache [id number] G44.009 Had some response to oxygen here in the officeWill start verapamil to help with ppx as well as BP as headaches are getting more frequent and lasting for 7 daysTitrat e up to 240mg total dailyIf tolerates will change to SR formulatio n Essential hypertension [id number] I10 Previously diagnosed and off medsWill try verapamil to treat both diseasesMo nitor at next visit [id number] Ramírez Wolf [place] [facility] ([address]) [address] [place] [address] 04/17/2017 16:52:15 04/18/2017 09:22:22 Dysuria [id number] R30.0 Not actually dysuria but R flank painNeg - trace blood from just finishing period Nonallopat hic lesion of lumbar region [id number] M99.83 OMT performed on QL/SI joint on that side - soft tissue, JSCS, FPR, articulato ry. Tolerated well and felt better afterwards Discussed Total back rest exercises moving forward and core strengthen ing.F/u with recurrance . High risk sexual behavior [id number] Z72.51 reports having a new partner with +HSV2 virus.Want ed to know info about transmissi onShe is currently waiting on testingAdv ised to use condoms and avoid unprotecte d oral sexf/u with additional questions [id number] Khris Leyva MD [facility] [address] [facility] [address] [place] [address] 12/04/2017 13:56:09 12/09/2017 09:23:23 Tension-type headache [id number] G44.209 - New ROES from back of neck likely tension type 2/2 increased neck strain with YOGA- also possibly some component of sinus pressure as she developed a frontal pressure/H A when leaning forward while having ORSE- no apparent si/sx of infection- also has migraine type with aura- patient provided with Neck exercise handout, advised to cut back on head stands- neurology referral placed by patient request, specifical ly stating that she used to get yearly neuroimagi ng by her prior neurologis t( who moved away a few years ago and she has not yet reestablis hed)- patient advised to heat/ice alternate on neck, NSAID Rx mobic as patient doesnt want to try OTC NSAID as they never worked in past Increased blood pressure [id number] R03.0 BP elevated on automatic cuff in officeBP on manual checks was WNL by Freida'jorge and by this MD- Patient concerned as BP readings at home also elevated at times- Patient was advised to check BP at home with home automated cuff after sitting for 5 minute with feet flat on ground- Patient provided with BP log paper, advised to RTC with BP log completed, with home BP cuff to compare [id number] [facility] [address] [facility] [address] [place] [address] 05/07/2018 09:30:58 05/07/2018 17:02:02 Adult health examination [id number] Z00.00 37 y/o F presenting in clinic for work physical and labs-No acute complaints -Blood pressure WNL today; instructed to start using BP log at home and to make sure is checking blood pressure after sitting and resting for 5 minutes and with feet flat on the floor. Patient expressed understand ing-Order BMP, Lipid panel-Will also order HgbA1c as patient with family history of early onset type 2 DM in mother who is also not obese.\-Re ports cervical cancer screening 11/2017; will request records-RT C 1 year or sooner PRN Health Concerns Section Related Observation LastModified by Organization Detai ls LastModified Time None Recorded Concern Status LastModified by Organization Details LastModified Time None Recorded Advance Directives Directive None Recorded Payers Encounter Date Sequence Insurance Name Policy Number Policy Mederos Covered Member ID Mederos Member ID Guarantor Name 12/03/2016 1 [place] [id number] Tayler Linares [id number] Tayler Linares 12/13/2016 1 [place] [id number] Tayler Linares [id number] Tayler Linares 04/17/2017 1 [place] [id number] Tayler Linares [id number] Tayler Linares 12/04/2017 1 [place] [id number] Tayler Linares [id number] Tayler Linares 05/07/2018 1 [place] [id number] Tayler Linares [id number] Tayler Linares Notes Date Note Type Note Provider Name and Address Organization Details Recorded Time 12/03/2016 text/html - just had an last week. Still having a hard time with it. Didn't get out of bed much for three days. Not on abx. was given treatment for Chl with azithro prior to treatment.No SI/HI. Does have trouble with the idea of 'killing something I was carrying...hearing a heartbeat and knowing it was alive. Not getting out much, not eating well, not exercising. Ramírez Wolf DO Attn: [address] [place], [address], [facility] 12/03/2016 21:20:47 12/13/2016 text/html ROSE - over 1 year . She had a CT scan a year ago and found sinus cyst?Intermittent ROSE - can last up to 7/10, sometimes as low at 4/10. Nothing makes it worse. R side maxillary area.No fevers, no sob, +dizziness (that she is spinning in the room). Appetite dec with ROSE. +migraine hx. +zyrtec Ramírez Wolf DO Attn: [address] [place], [address], [facility] 12/13/2016 10:41:34 04/17/2017 text/html R sided back yolande n - on and off for months. No other associated symptoms of hematuria, dysuria, vaginal discharge, change in bowels. Does this water makes it go away sometimes. DOes core exercises around the time. No change in position seems to change pain. No fevers/chills Ramírez Wolf DO Attn: [address] , [place], [address], [facility] 04/17/2017 22:41:41 12/04/2017 text/html 37 yo F with PMH migraines here for ROSE for 4 days-Headache began about 2 weeks prior. Had migraines around time of start but typically migraine comes and goes without other headache between So this episode was not the typical the pain starts in the back of her head/upper neck and radiates around to front and top of head-lasts for minutes to hours-achy pain, has been improving over past 4-5 daysHas not been treating with medication, used heating pad a few times with some benefitOf note, over past 1 or so months patient has been intentionally increasing Yoga workout intensity, specifically of head stands Also of note, patient states that at other doctors offices her BP is consistently elevated, including today at [facility] office. Denies lightheadedness/diz ziness, vision changes, CP, SOAEndorses N/V x 1 with migraine in past 2 weeks Khris Leyva MD Attn: [address] , [place], [address], [facility] 12/15/2017 14:36:02 05/07/2018 text/html Mrs. Tayler Linares i s a 37 y/o F presenting in clinic for work physical and lab work. Patient denies any acute complaints at this time. Patient does have history of elevated blood pressure readings in clinic, but repeats have been WNL. She was given home BP log to track readings, but states that she hasn't been doing this. States that her blood pressures are always around 120/s over 70's first thing in the morning. She states that in the afternoon they seem to be higher, but she states that she never allows herself to rest for about 5 minutes prior to checking. Denies headache, changes in vision, chest pain, palpitations, dyspnea, abdominal pain, N/V/D/C, or dysuria.Patient also reports significant family history of Type 2 DM in her mother and maternal grandmother. States that her mother is not obese and was diagnosed with DM2 around age 30. She currently denies any polyuria, polydipsia, numbness, or tingling. Stacie Wolf DO Attn: [address] [facility], [place], [address], [facility] 05/07/2018 21:55:32 OBGyn Episode No OBEpisode recorded.
--- OUTSIDE RECORDS SUMMARY | 2024-12-29 17:55 | XMS_ITS | Clinical Summary ---
Author Organization [facility] Address [address] [place] [id number] Care Team Providers [facility] Name Role Phone Alexys Scott MD Primary Care Provider [phone] Allergies No known active allergies Social History Tobacco Use Types Packs/Day Years Used Date Smoking Tobacco: Never Smokeless Tobacco: Never Alcohol Use Standard Drinks/Week Comments Yes 0 (1 standard drink = 0.6 oz pur e alcohol) socially AUDIT-C Answer Date Recorded Frequency of Alcohol Consumption Never 07/25/2018 Average Number of Drinks Not on file 018 Frequency of Binge Drinking Not on file 07/09 Comments No Sex and Gender Information Value Date Recorded Sex Assigned at Not on file Legal Sex Female 7:38 PM CDT Gender Identity Not on file Sexual Orientation Not on file Last Filed Vital Signs Vital Sign Reading Time Taken Comments Blood Pressure 142/88 07/25/2018 5:30 PM INTERNAL GRINDER SET UP OPERATOR Pulse 87 07/25/2018 5:30 PM INTERNAL GRINDER SET UP OPERATOR Temperature 36.4 C (97.6 F) 07/25/2018 5:30 PM INTERNAL GRINDER SET UP OPERATOR Respiratory Rate 16 07/25/2018 5:30 PM INTERNAL GRINDER SET UP OPERATOR Oxygen Saturation 100% 07/25/2018 5:30 PM INTERNAL GRINDER SET UP OPERATOR Inhaled Oxygen Concentration - - Weight 68.7 kg (151 lb 6.4 oz) 07/25/2018 5:30 P M INTERNAL GRINDER SET UP OPERATOR Height 170.2 cm (5' 7 ) 07/25/2018 5:30 PM INTERNAL GRINDER SET UP OPERATOR Body Mass Index 23.71 07/25/2018 5:30 PM INTERNAL GRINDER SET UP OPERATOR Plan of Treatment Health Maintenance Due Date Last Done Comments Cervical Cancer Screening Pap Smear (Age 30 to 64) Every 3 Years 1978 Colorectal Cancer Screening Colonoscopy (10 Years) 1978 Annual Physical 1981 Hepatitis C 1996 DTaP, Tdap and Td Vaccines (1 - Tdap) 1997 Hepatitis B Vaccines (1 of 3 - 19+ 3-dose series) 1997 Cervical Cancer Screening Pap with HPV Testing (Age 30 to 64) Every 5 Years 2008 Cervical Cancer Screening with HPV 2008 COVID-19 Vaccine ( season) 2024 11/18/2021 Mammogram Screening 01/25/2026 01/26/2024, 10/28/2022, 08/21/2021, Additional history exists Meningococcal B Vaccine Aged Out No l onger eligible based on patient's age to complete this topic Meningococcal Vaccine Aged Out No patrice gladys eligible based on patient's age to complete this topic Pneumococcal Vaccine: Pediatrics (0 to 5 Years) and At-Risk Patients (6 to 49 Years) Aged Out No longer eligible based on patient's age to complete this topic RSV Immunizations Under 20 Months Aged Out No longer eligible based on patient's age to complete this topic Procedures Procedure Name Priority Date/Time Associated Diagnosis Comments MG SCREENING W MENDOZA TEGAN DIGI Routine 01/26/2024 3:44 PM CDT Visit for screening mammogram from Last 3 Months or Most Recently Relevant to Health Maintenance Results * MG SCREENING W MENDOZA TEGAN DIGI (01/26/2024 3:44 PM CDT) Anatomical Region Laterality Modality Breast Bilateral Mammography 01/26/2024 5:46 PM CDT Impressions 01/26/2024 5:51 PM CDT IMPRESSION: No suspicious mammographic findings. Recommendation: 1. Routine Screening, Bilateral Assessment: ACR BI-RADS 1 - NEGATIVE Ordered By: ALEXYS SCOTT Interpreted By: William Schreiber MD, 01/26/2024 5:46 PM Narrative 01/26/2024 5:51 PM CDT Examination: Screening bilateral mammogram Exam Date: 01/26/2024 3:28 PM Clinical history: Routine screening. Comparison: 10/28/2022, 08/21/2021 Technique: Digital screening mammography of both breasts was performed. Breast tomosynthesis acquisitions were obtained and reviewed. This study was read with the assistance of a computer-aided detection system. Tissue density: There are scattered areas of fibroglandular density. Findings: No suspicious masses, malignant appearing calcifications, skin thickening or other abnormalities are present. No significant change from the prior exam. Alexys Scott MD MAMMO Final Result from Last 3 Months or Most Recently Relevant to Health Maintenance Insurance Care Teams [facility] Relationship Specialty Start Date End Date Alexys Scott MD [address] [address] PCP - General INTERNAL MEDICINE 07/25/18
[2024-12-29 18:06] VITALS: BP 170/105; PULSE 86; RESP 16; TEMP 36.5; O2SAT 100
--- NOTE | 2024-12-29 18:26 | ED_ITS ---
HPI - URI/Sore Throat General Chief Complaint: Upper Respiratory Infection Stated Complaint: strep/sore throat Time Seen by Provider: 12/29/24 18:27 Source: patient Mode of arrival: ambulatory Limitations: no limitations History of Present Illness HPI Narrative: Here with history of sinus pressure, headache, congestion, cough, and sore throat. She reports symptoms onset 6 days ago after traveling to [place] to [facility]. She denies any fever, nausea, vomiting, diarrhea, or body aches. Denies any sick contacts. She reports she is taking Zyrtec for this concern with some relief. Of note, she also states that she is supposed to take daily blood pressure medication and does not take this. she states she is aware blood pressure will be high today. Related Data Home Medications ?Medication ?Instructions ?Recorded ?Confirmed ?Last Taken ?Type cetirizine 10 mg tablet (Zyrtec) 10 mg PO DAILY 09/07/23 12/29/24 Unknown History Allergies Allergy/AdvReac Type Severity Reaction Status Date / Time clindamycin Allergy Mild Rash Verified 12/29/24 17:55 Review of Systems Review of Systems: CONSTITUTIONAL: Denies fever, chills, or sweats. EYES: Denies visual changes, redness, or discharge. ENT: Reports rhinorrhea, congestion, and sore throat. Denies otalgia. CARDIOVASCULAR: Denies chest pain, palpitations, or edema. RESPIRATORY: Reports cough. Denies dyspnea. GASTROINTESTINAL: Denies abdominal pain, nausea, vomiting, or diarrhea. GENITOURINARY: Denies dysuria or hematuria. SKIN: Denies rash or itching. MUSCULOSKELETAL: Denies back pain, joint pain, or myalgia. NEUROLOGIC: Denies numbness, or weakness. Reports headache. PSYCHIATRIC: Denies anxiety or depression. All other systems reviewed are negative, except as documented in HPI. PMFSH Comments At time of signature, I have reviewed and agree with nursing past medical, surgical, social and family history unless otherwise noted. Please see nursing chart for further information. There is no relevant family history pertinent to the presenting complaint. Exam Narrative: GENERAL: This is a well-nourished, well-developed patient, in no apparent distress. HEAD: normocephalic, atraumatic. EYES: Sclera clear/white. No discharge. EARS: External ears normal, auditory canals clear and without drainage, TMs opacified with visible fluid line and without perforation. Hearing grossly intact. NOSE: External nose normal with no obvious nasal discharge, Nasal mucosa is pale and hypertrophic, + rhinorrhea. THROAT: Mucous membranes moist, posterior pharynx with slight erythema and postnasal drainage. NECK: Neck supple, non-tender without lymphadenopathy. CARDIOVASCULAR: Regular rate and rhythm without murmurs, gallops, or rubs. RESPIRATORY: Clear to auscultation. Breath sounds equal bilaterally. No wheezes, rales, or rhonchi. SKIN: warm, Dry, intact with no suspicious lesions or rash, good texture and turgor. NEURO: awake, alert, and oriented to person, place and time. There were no obvious focal neurologic abnormalities. EXTREMITIES: No joint tenderness, effusion, or edema noted. Course Course Level of Care: Express Care Visit Vital Signs Vital signs: Vital Signs Temperature 36.5 C 12/29/24 18:06 Pulse Rate 86 12/29/24 18:06 Respiratory Rate 16 12/29/24 18:06 Blood Pressure 170/105 H 12/29/24 18:06 Pulse Oximetry 100 12/29/24 18:06 Oxygen Delivery Room Air 12/29/24 18:06 Temperature 36.5 C 12/29/24 18:06 Pulse Rate 86 12/29/24 18:06 Respiratory Rate 16 12/29/24 18:06 Blood Pressure 170/105 H 12/29/24 18:06 Pulse Oximetry 100 12/29/24 18:06 Oxygen Delivery Room Air 12/29/24 18:06 Reviewed. BP checked manually by LUZ MARIA Meredith: 158/94. patient aware of both blood pressure readings today. MDM - URI/Sore Throat MDM Narrative Medical decision making narrative: Flu, COVID, and strep tests were all negative today. A strep culture was sent to the lab and results will be back in 2-3 days. Patient is non toxic appearing and in no distress. Reviewed likely upper respiratory infection and allergy symptoms with eustachian tube dysfunction. She will continue her Zyrtec and start daily Flonase for this. she will start medicine for cough. She will continue supportive care. We also discussed in detail her blood pressure today and used shared decision- making. I reviewed the importance of taking her medication daily. We discussed risks and benefits of medication and patient states she will start her daily blood pressure medication today. I also advised she strip picker a home blood p ressure cuff and keep a daily blood pressure log. She was provided with a blood pressure log today. She is in agreement with this plan and will check her blood pressure once daily and share the blood pressure log with her primary care provider. Reviewed blood pressure goal of 120/80. She verbalized understanding. Patient is aware of diagnosis, understands and agrees to treatment plan. Anticip atory guidance was given. Discussed physical exam findings with patient and reviewed prescriptions. Patient agrees to follow-up as directed and is aware of reasons to seek care at the emergency department. Discharge instructions were reviewed with the patient, as well as provided in writing per nursing staff. All questions have been answered, and the patient denies any further questions related to discharge or discharge plan. Lab Data Labs: strep, flu, COVID test were all negative. Discharge Plan Discharge Clinical Impression: Upper respiratory infection Qualifiers: URI type: unspecified viral URI Qualified Code(s): J06.9 - Acute upper respiratory infection, unspecified Allergic rhinitis Qualifiers: Allergic rhinitis trigger: other Allergic rhinitis seasonality: unspecified Qualified Code(s): J30.89 - Other allergic rhinitis Cough Qualifiers: Cough type: acute Qualified Code(s): R05.1 - Acute cough Hypertension Qualifiers: Hypertension type: unspecified Qualified Code(s): I10 - Essential (primary) hypertension Patient Disposition: Home Condition: Stable Instructions: How to Take a Blood Pressure Reading (ED), Upper Respiratory Infection (ED), Allergies (ED), DASH Eating Plan (ED), Hypertension (ED) Additional Instructions: Your strep, flu, and COVID test were all negative today. Your strep test was sent out for a culture and you will be contacted if this is positive in 2-3 days. You were diagnosed with an upper respiratory infection and allergy symptoms. Continue your allergy regimen of daily Zyrtec and add daily Flonase 2 sprays per nostril per day. We also reviewed the importance of checking your blood pressure and taking your blood pressure medication. Start checking blood pressure daily at home and keep a blood pressure log for your primary care provider. Resume your daily blood pressure medication. Take medications as prescribed and follow printed instructions. May take over the counter acetaminophen and/or ibuprofen by mouth as needed/directed for pain/fever. May use over the counter throat sprays and lozenges to help with throat pain. Warm salt water gargles. Push fluids and soft diet; advance as tolerated. No juices or sodas as this will increase throat pain. Nutrition is important - eat small frequent meals. Call your Primary Care Doctor today to make a follow-up appointment. Go to the ER for any worsening symptoms or concerns. Patient Language: Macedonian Prescriptions: New benzonatate 200 mg capsule 200 mg PO TID PRN (Reason: cough) Qty: 15 0RF No Action cetirizine [Zyrtec] 10 mg Tablet 10 mg PO DAILY Follow-up/Referrals: Tyler,MD Bliss ([place]) [Primary Care Provider] - Time of Disposition: 18:59
[2024-12-29 18:30] VITALS: BP 156/94
[2024-12-29 18:33] LABS: EDSTREPNEGPOS1 Negative (Negative)
[2024-12-29 18:35] LABS: EDCOVIDSCREEN Negative (Negative); EDINFLUASCREEN Negative (Negative); EDINFLUBSCREEN Negative (Negative)
== END 2024-12-29 19:00 | disposition home or self-care (01) ==
PROVIDERS: Emergency Provider Nurse Practitioner; PCP Internal Medicine
DX: J02.9 Acute pharyngitis, unspecified (principal); J30.89 Other allergic rhinitis; R05.1 Acute cough; I10 Essential (primary) hypertension; Z20.822 Contact with and (suspected) exposure to COVID-19; Z86.16 Personal history of COVID-19
CPT/HCPCS: 87081; 87426; 87804; 87880; 99213; G0463